=== PATIENT | male | born 1950 | race Caucasian/White ===

== ENCOUNTER 2016-05-17 00:47 | Inpatient (IN) | payer MEDICARE, MEDICAID ==
[2016-05-17] VITALS (30 sets, daily range): BP systolic 97–137; BP diastolic 54–78; PULSE 94–114; RESP 15–25
[~2016-05-17] VITALS: Ht 188 cm; Wt 71.8 kg
[2016-05-17] MEDS ORDERED: ACETAMINOPHEN 650 MG SUPP PR PRN (02:00)
[2016-05-17] MEDS ORDERED: ONDANSETRON 4 MG INJ IV PRN (02:00)
[2016-05-17] MEDS ORDERED: ACETAMINOPHEN 650MG/20.3ML CUP GTB PRN (02:00)
[2016-05-17] MEDS ORDERED: BISACODYL 10 MG SUPP PR PRN (02:00)
[2016-05-17 02:31] LABS: AADO2 Arterial 230.9 mmHg (7.0-24.0); Allen Test ACCEPTAB; Arterial Base Excess 0.6 mmol/L (-3.0-3); Arterial COHb 0.3 % (0.0-3.0); Arterial Fraction of Oxyhgb 98.3 % (93.0-99.0); Arterial HCO3 26.5 mmol/L (22.0-26.0); Arterial MetHb 0.4 % (0.0-1.5); MODE VENT - AC
[2016-05-17] MEDS ORDERED: DEXTROSE 50% 50 ML SYRINGE IV PRN ×2 (02:45)
[2016-05-17] MEDS ORDERED: GLUCOSE GEL 15 GRAM TUBE BUCCAL PRN (02:45)
[2016-05-17] MEDS ORDERED: GLUCOSE GEL 15 GRAM TUBE PO PRN ×2 (02:45)
[2016-05-17] MEDS ORDERED: GLUCAGON 1 MG INJ IM PRN (02:45)
[2016-05-17] MEDS ORDERED: IPRATROPIUM (NEB) 0.5 MG/2.5 ML AMP HHN SCH (05:00)
[2016-05-17 05:55] LABS: ADD SCAN DIFF NO
[2016-05-17] MEDS: IPRATROPIUM (HFA) 12.9 GM INHALER INH SCH ×6 (05:55→21:00)
[2016-05-17] MEDS: INSULIN ASPART [NOVOLOG] 3 ML PEN SC SCH ×3 (06:00→17:49)
[2016-05-17 06:06] LABS: BASOPHILS % 0.1 % (0.0-2.0); EOSINOPHILS # 0.3 10^3/ul (0.0-0.5); EOSINOPHILS % 4.7 % (0.0-7.0); HEMATOCRIT 26.6 % (42.0-52.0); LYMPHOCYTES # 0.7 10^3/ul (0.8-2.9); LYMPHOCYTES % 10.5 % (15.0-51.0); MEAN CORPUSCULAR HEMOGLOBIN 33.6 pg (29.0-33.0); MEAN CORPUSCULAR HGB CONC 30.1 g/dl (32.0-37.0); MEAN CORPUSCULAR VOLUME 111.8 fl (82.0-101.0); MEAN PLATELET VOLUME 10.6 fl (7.4-10.4); MONOCYTE # 0.8 10^3/ul (0.3-0.9); MONOCYTES % 12.1 % (0.0-11.0); NEUTROPHIL # 4.8 10^3/ul (1.6-7.5); NEUTROPHILS % 71.4 % (39.0-77.0); PLATELET COUNT 215 10^3/UL (140-415); RED BLOOD COUNT 2.38 10^6/ul (4.70-6.10); RED CELL DISTRIBUTION WIDTH 17.9 % (11.5-14.5); WHITE BLOOD COUNT 6.8 10^3/ul (4.8-10.8)
[2016-05-17 06:26] LABS: POTASSIUM 4.6 mmol/L (3.5-5.1)
[2016-05-17 06:29] LABS: CREATININE 1.17 mg/dl (0.61-1.24)
[2016-05-17 06:30] LABS: CALCIUM 8.8 mg/dl (8.4-10.2)
[2016-05-17] MEDS: DEXTROSE 5% 1,000 ML IV SCH ×2 (07:30→09:20)
[2016-05-17 07:59] LABS: ALBUMIN 2.9 g/dl (3.3-4.9)
[2016-05-17 08:02] LABS: BILIRUBIN,INDIRECT 0.1 mg/dl (0-1.1); BILIRUBIN,TOTAL 0.1 mg/dl (0.2-1.3); TOTAL PROTEIN 6.9 g/dl (6.1-8.1)
--- NOTE | 2016-05-17 08:29 | HP ---
DATE OF ADMISSION: 05/17/2016 CHIEF COMPLAINT: Status post Code Arrest. HISTORY OF PRESENT ILLNESS: This is a 65-year-old male with a past medical history of depression, h istory of intracranial hemorrhage, history of chronic hydrocephalus, history of bacterial endocardit is, history of mitral valve prolapse, history of dysphagia, status post PEG, a history of pneumonia and sepsis who initially presented to [facility] on 03/17/2016 after being found unrespon sive. The patient came from a halfway facility, was brought to the emergency room and was p laced on BiPAP. The patient was diagnosed with sepsis secondary to pneumonia. He was placed on IV fluids and IV antibiotics. The patient, however, suffered a complicated hospital course, requiring multiple transfers to the intensive care unit for hypercapnic respiratory failure. The patient also suffered a Code Arrest during the hospital stay due to a thoracic wall hematoma while on heparin fo r a lower extremity deep venous thrombosis, causing hemorrhagic shock. The patient had his PEA arre st on 04/27/2016 secondary to hypoxemic respiratory failure. The patient was eventually trached and pegged on 04/29/2016. The patient was eventually stabilized and transferred to [facility] for continued care. While at [facility] the patient has been clinically stable; however, yesterd ay the patient suffered a Code Blue cardiac arrest, was in asystole for 1 minute. The patient under went CPR, with spontaneous return of circulation. The etiology of the code was felt to be due to a mucus plug. The patient was placed back on the vent, was not given any medications, was not placed on any drips. The patient, however, was transferred from [facility] to [facility] intensive ca re unit for continued care and monitoring. Overnight the patient has been stable hemodynamically. There have been no episodes of hemoptysis, h ematemesis or hematochezia. Upon my evaluation of the patient at this time he is currently nonresponsive, retracts to deep painf ul stimuli, appears to be at his previous baseline. PAST MEDICAL HISTORY: History of chronic respiratory failure, status post tracheostomy, history of dysphagia, history of encephalopathy, history of chronic hydrocephalus, history of bacterial endocar ditis, history of mitral regurgitation, history of scoliosis. PAST SURGICAL HISTORY: Status post trach, status post PEG, status post IVC filter, status post VATS . SOCIAL HISTORY: Resides at a skilled nurse facility. FAMILY HISTORY: Noncontributory. ALLERGIES: NO KNOWN DRUG ALLERGIES. MEDICATIONS: The patient's medications have been reviewed and reconciled. REVIEW OF SYSTEMS: Unable to do an adequate review of systems as the patient is obtunded. Pertinen t positives obtained by reviewing the medical records, speaking to hospital staff, as stated in the HPI, otherwise negative. PHYSICAL EXAMINATION: VITAL SIGNS: Blood pressure 120/69, respirations 16, pulse 101, temperature 98.7. HEENT: Head is normocephalic. NECK: Shows a trach. HEART: Regular rate. LUNGS: Showed diminished breath sounds at the base. ABDOMEN: Soft, nontender to palpation. Positive PEG. EXTREMITIES: Negative for clubbing or cyanosis. Positive edema, left greater than right. NEUROLOGIC: Limited exam due to lack of patient cooperation. MUSCULOSKELETAL: Have no joint effusion. DERMATOLOGIC: No rashes. LABORATORY DATA: Shows sodium 148, potassium 4.6, chloride 109, bicarbonate 34, BUN 44, creatinine 1.17. White count 6.8, hemoglobin 8.0, hematocrit 26.6, platelet count is 215. ABG was reviewed. ASSESSMENT AND PLAN: This is a 65-year-old male who presents with: 1. Status post Code Arrest. Etiology is felt to be secondary to respiratory due to mucus plug. Th e patient underwent CPR for approximately 45 minutes and was noted to be asystole for 1 minute. The patient had spontaneous return of circulation. At this point the patient is stable. Will continue the current treatment plan, continue vent support. Will place a cardiology consult and pulmonary c onsult for evaluation. 2. Ventilator-dependent respiratory failure. Vent settings have been reviewed. ABG has been revie thu. Continue to monitor. Follow up with pulmonary. 3. Coronary artery disease. Continue the current medical management. 4. Dysphagia, status post PEG. The patient will be resumed on tube feedings. Will place a dietary c onsult for evaluation. 5. Anemia, likely of chronic disease. Continue to monitor H and H levels. Will check an iron pane l. 6. Acute encephalopathy. Etiology is toxic metabolic and anoxic. Will continue to monitor. 7. Seizure disorder. Continue Keppra. 8. Arrhythmia, history of SVT. Continue metoprolol. 9. History of lower extremity deep venous thrombosis, status post inferior vena cava filter. 10. Hypertension. Blood pressure controlled. Continue the current blood pressure regimen. 11. Previous history of hemorrhagic cerebrovascular accident. Continue medical management. 12. Urinary retention and benign prostatic hypertrophy. Continue Proscar. 13. History of congestive heart failure. Continue the current medical management and follow up wit h cardiology. 14. Status post sepsis secondary to healthcare-associated pneumonia. 15. History of VATS. 16. History of endocarditis. 17. Hyponatremia. The patient has a free water deficit of approximately 2.5 liters. Will start th e patient on D5W at 50 mL an hour. Dictated By: DOLLY OROSCO/JAYNA Conf#: [id number] DID#: [id number]
[2016-05-17] MEDS: SENNA TAB PO SCH (09:08)
[2016-05-17] MEDS: FAMOTIDINE 20 MG INJ IV SCH (09:08)
[2016-05-17] MEDS: LACTULOSE 30ML CUP PO SCH (09:08)
[2016-05-17] MEDS: LIDOCAINE 2% VISC 15 ML CUP PO SCH ×3 (09:08→20:36)
[2016-05-17] MEDS: LEVETIRACETAM IV 750 MG in DEXTROSE 5% 100 ML IVPB SCH ×2 (09:08→20:27)
[2016-05-17] MEDS: FINASTERIDE 5 MG TAB GTB SCH (09:08)
[2016-05-17] MEDS: ACETAZOLAMIDE 500 MG INJ IV SCH (09:09)
[2016-05-17] MEDS: POLYETHYLENE GLYCOL 17 GM PACKET PO SCH (09:09)
[2016-05-17] MEDS: METOPROLOL 25 MG TAB GTB SCH ×2 (09:09→20:26)
[2016-05-17] MEDS: LIDOCAINE 5% PATCH TD SCH (09:09)
[2016-05-17] MEDS: HEPARIN 5,000 UNIT/0.5 ML SYG SC SCH ×2 (09:16→20:30)
--- NOTE | 2016-05-17 09:44 | CONS ---
Date/Time of Note Date/Time of Note DATE: 05/17/16 TIME: 09:41 Assessment/Plan Assessment/Plan Additional Assessment/Plan 1. Status post Code Arrest. 2. Ventilator-dependent respiratory failure. 3. Coronary artery disease. 6. Acute encephalopathy. 7. Seizure disorder. 8. Arrhythmia, history of SVT. 9. History of lower extremity deep venous thrombosis, status post inferior vena cava filter. 10. Hypertension. 11. Previous history of hemorrhagic cerebrovascular accident. 13. History of congestive heart failure. 14. Status post sepsis secondary to healthcare-associated pneumonia. 15. History of VATS. 16. History of endocarditis. -Continue curretn management -no malignant arrythmias -on metoprololo withno malignant arrtyhmias -on antibiotics -monitor for arrythmias Consultation Date/Type/Reason Admit Date/Time May 17, 2016 at 01:40 Hx of Present Illness This is a 65-year-old male with a past medical history of depression, history of intracranial hemorrhage, history of chronic hydrocephalus, history of bacterial endocarditis, history of mitral valve prolapse, history of dysphagia, status post PEG, a history of pneumonia and sepsis who initially presented to [facility] on 03/17/2016 after being found unresponsive. The patient came from a care home facility, was brought to the emergency room and was placed on BiPAP. The patient was diagnosed with sepsis secondary to pneumonia. He was placed on IV fluids and IV antibiotics. The patient, however , suffered a complicated hospital course, requiring multiple transfers to the intensive care unit for hypercapnic respiratory failure. The patient also suffered a Code Arrest during the hospital stay due to a thoracic wall hematoma while on heparin for a lower extremity deep venous thrombosis, causing hemorrhagic shock. The patient had his PEA arrest on 04/27/2016 secondary to hypoxemic respiratory failure. The patient was eventually trached and pegged on 04/29/2016. The patient was eventually stabilized and transferred to [facility] for continued care. While at [place] the patient has been clinically stable; however, yesterday the patient suffered a Code Blue cardiac arrest, was in asystole for 1 minute. The patient underwent CPR, with spontaneous return of circulation. The etiology of the code was felt to be due to a mucus plug. The patient was placed back on the vent, was not given any medications, was not placed on any drips. The patient, however, was transferred from [facility] intensive care unit for continued care and monitoring. Currently he is stable in the ICU with no malignant arrythmias Social History Smoking Status: Unknown if ever smoked Exam/Review of Systems Vital Signs Vitals Vital Signs Date Time Temp Pulse Resp B/P Pulse Ox O2 Delivery O2 Flow Rate FiO2 05/17/16 08:00 98 05/17/16 07:00 98.8 17 118/68 100 Mechanical Ventilator 05/17/16 05:48 50 Intake and Output 05/16/16 05/16/16 05/17/16 15:00 23:00 07:00 Output Total 1010 ml Balance -1010 ml Results Result Diagram: 05/17/16 0450 05/17/16 0450 Results 24 hrs Laboratory Tests Test 05/17/16 02:15 05/17/16 04:50 05/17/16 05:59 Blood Gas Specimen Source Blood arterial Arterial Blood Date Drawn 05/17/2016 2:15:18 AM Arterial Blood pH (Temp corrected) 7.347 L Arterial Blood pCO2 (Temp correct) 49.5 H Arterial Blood pO2 (Temp corrected) 215.0 H Arterial Blood HCO3 26.5 H Arterial Blood Base Excess 0.6 Arterial Blood Oxygen Saturation 99.0 H Dane Test ACCEPTAB Arterial Blood Gas Puncture Site Right Radial Arterial Blood Carboxyhemoglobin 0.3 Arterial Blood Methemoglobin 0.4 Blood Gas A-a O2 Differential 230.9 H Oxyhemoglobin Percent 98.3 Total Hemoglobin 9.0 L Blood Gas Temperature 37.0 Blood Gas Respiration Rate 10.0 Blood Gas Actual Respiration Rate 16 Blood Gas Modality VENT - AC FiO2 70.0 Blood Gas Tidal Volume 400.0 Blood Gas Low PEEP Setting 5.0 Blood Gas Notified Whom MA Blood Gas Notified Time 05/17/2016 2:31:06 AM White Blood Count 6.8 # Red Blood Count 2.38 L Hemoglobin 8.0 L Hematocrit 26.6 L Mean Corpuscular Volume 111.8 H Mean Corpuscular Hemoglobin 33.6 H Mean Corpuscular Hemoglobin Concent 30.1 L Red Cell Distribution Width 17.9 H Platelet Count 215 Mean Platelet Volume 10.6 H Neutrophils % 71.4 Lymphocytes % 10.5 L Monocytes % 12.1 H Eosinophils % 4.7 Basophils % 0.1 Nucleated Red Blood Cells % 0.0 Neutrophils # 4.8 Lymphocytes # 0.7 L Monocytes # 0.8 Eosinophils # 0.3 Basophils # 0.0 Nucleated Red Blood Cells # 0.0 Sodium Level 148 H Potassium Level 4.6 Chloride Level 109 Carbon Dioxide Level 34 H Anion Gap 10 Blood Urea Nitrogen 44 H Creatinine 1.17 Glucose Level 89 Calcium Level 8.8 Total Bilirubin 0.1 L Direct Bilirubin 0.00 Indirect Bilirubin 0.1 Aspartate Amino Transf (AST/SGOT) 50 H Alanine Aminotransferase (ALT/SGPT) 55 Alkaline Phosphatase 168 H Total Protein 6.9 Albumin 2.9 L Bedside Glucose 91 Medications Medications Current Medications Acetaminophen (Tylenol Liquid) 650 mg Q6H PRN GTB PAIN AND OR ELEVATED TEMP; Start 05/17/16 at 02:00 Acetaminophen (Tylenol Supp) 650 mg Q6H PRN MO IF GTB ROUTE NOT EFFECTIVE; Start 05/17/16 at 02:00 Acetazolamide (Diamox) 500 mg DAILY IV Last administered on 05/17/16 09:09; Admin Dose 500 MG; Start 05/17/16 at 09:00 Bisacodyl (Dulcolax Supp) 10 mg DAILY PRN [place] CONSTIPATION; Start 05/17/16 at 02 :00 Insulin Aspart (Novolog Insulin Pen) NOVOLOG *MILD* ALGORI... Q6 SC ; Start at 06:00 Digoxin (Digoxin) 0.125 mg DAILY@13 GTB ; Start 05/17/16 at 13:00 Famotidine (Pepcid Iv) 20 mg DAILY IV Last administered on 05/17/16 09:08; Admin Dose 20 MG; Start 05/17/16 at 09:00 Finasteride (Proscar) 5 mg DAILY GTB Last administered on 05/17/16 09:08; Admin Dose 5 MG; Start 05/17/16 at 09:00 Heparin Sodium (Porcine) (Heparin (5000 Units/0.5 ml)) 5,000 unit BID SC Last administered on 05/17/16 09:16; Admin Dose 5,000 UNIT; Start 05/17/16 at 09:00 Acetaminophen/ Hydrocodone Bitart (Lortab Liq) 10 ml Q6H PRN PO PAIN; Start at 02:00 Lactulose 20 gm 20 gm DAILY PO Last administered on 05/17/16 09:08; Admin Dose 20 GM; Start 05/17/16 at 09:00 Levetiracetam/ Dextrose (Keppra Iv/D5W) 107.5 ml @ 430 mls/hr Q12 IVPB Last administered on 05/17/16 09:08; Admin Dose 430 MLS/HR; Start 05/17/16 at 09:00 Lidocaine (Lidoderm) 1 patch DAILY TD Last administered on 05/17/16 09:09; Admin Dose 1 PATCH; Start 05/17/16 at 09:00 Lidocaine (Xylocaine (Viscous)) 15 ml TID PO Last administered on 05/17/16 09: 08; Admin Dose 15 ML; Start 05/17/16 at 09:00 Metoprolol Tartrate (Lopressor) 25 mg BID GTB Last administered on 05/17/16 09 :09; Admin Dose 25 MG; Start 05/17/16 at 09:00 Ondansetron HCl (Zofran Inj) 4 mg Q8 PRN IV NAUSEA AND/OR VOMITING; Start 05/17 at 02:00 Polyethylene Glycol (Miralax) 17 gm DAILY PO Last administered on 05/17/16 09: 09; Admin Dose 17 GM; Start 05/17/16 at 09:00 IV Flush (NS 10 ml) 10 ml Q8 IV Last administered on 05/17/16 06:00; Admin Dose 10 ML; Start 05/17/16 at 06:00 Senna (Senokot) 2 tab DAILY PO Last administered on 05/17/16 09:08; Admin Dose 2 TAB; Start 05/17/16 at 09:00 Simethicone (Mylicon) 80 mg Q6H PRN PO DISTENSION/GAS/BLOATING; Start 05/17/16 at 02:00 Miscellaneous Information 1 ea NOTE XX ; Start 05/17/16 at 02:45 Glucose (Glutose) 15 gm Q15M PRN PO DECREASED GLUCOSE; Start 05/17/16 at 02:45 Glucose (Glutose) 22.5 gm Q15M PRN PO DECREASED GLUCOSE; Start 05/17/16 at 02: 45 Dextrose (D50w Syringe) 25 ml Q15M PRN IV DECREASED GLUCOSE; Start 05/17/16 at 02:45 Dextrose (D50w Syringe) 50 ml Q15M PRN IV DECREASED GLUCOSE; Start 05/17/16 at 02:45 Glucagon (Glucagen) 1 mg Q15M PRN IM DECREASED GLUCOSE; Start 05/17/16 at 02:45 Glucose 15 gm 15 gm Q15M PRN BUCCAL DECREASED GLUCOSE; Start 05/17/16 at 02:45 Dextrose (D5W) 1,000 ml @ 50 mls/hr Q20H IV Last administered on 05/17/16t 09: 20; Admin Dose 50 MLS/HR; Start 05/17/16 at 07:30 BETTY HARRIS MD May 17, 2016 09:44
--- NOTE | 2016-05-17 09:46 | RADRPT ---
PROCEDURE: XR Chest. CLINICAL INDICATION: CHF. TECHNIQUE: Single frontal view of the chest was obtained COMPARISON: Chest x-ray 05/14/2016 07:21 a.m. FINDINGS: The soft tissues are normal. There are osteophytes in the thoracic spine with a dextroscoliosis in the mid thoracic spine. The left ventricle is enlarged. The cardiomediastinal silhouette and hilar structures are normal. The pulmonary vasculature is normal. There are vascular calcifications in th e aortic arch. There are asymmetric pulmonary infiltrates greater in the right hilar area and right lower lobe. There are additional consolidative infiltrates in the left lower lobe which are stable. A tracheostomy tube is positioned to 04/26. There are bilateral pleural effusions. IMPRESSION: 1. There has been slight interval worsening of the pulmonary infiltrates in the right lung when comp ared to the prior study. Otherwise, stable chest x-ray. 2. Stable positioning of the tracheostomy tube. RPTAT:AAJJ Physician Sharita Date Time Electronically viewed and signed by Physician Sharita on 05/17/2016 09:46 SHERIF/
[2016-05-17] MEDS ORDERED: VANCOMYCIN IV PER PHARMACY XX SCH (12:00)
--- NOTE | 2016-05-17 12:04 | CONS ---
Date/Time of Note Date/Time of Note DATE: 05/17/16 TIME: 11:58 Assessment/Plan Assessment/Plan Additional Assessment/Plan Chest x-ray was reviewed from today which is showing extensive infiltrate involving the right lower lobe. Current ventilator setting; AC of 10, tidal volume 400, PEEP of 5, 30% FiO2. Assessment recommendations; 1. Patient admitted for cardiac arrest status post successful CPR. 2. Right lower lobe pneumonia possibly aspiration. 3. Multiple other comorbidities as outlined previously which all appear fairly stable. Continue current treatment. Start patient on antibiotic coverage I would recommend adding vancomycin and cefepime. Ecchymosis is poor. Consultation Date/Type/Reason Admit Date/Time May 17, 2016 at 01:40 Date of Consultation: May 17, 2016 Type of Consultation: Pulmonary/critical care Reason for Consultation Pulmonary consultation obtained for ventilator management, patient status post cardiac arrest status post CPR. History presenting; patient is a 65-year-old white male who was transferred to ICU from [facility] after sustaining cardiac arrest yesterday. Patient went into PEA was successfully revived and then transferred to ICU. The patient does have a history of severe CVA and is unable to give any history whatsoever by himself history was obtained from medical records. Currently the patient is on ventilator via tracheostomy unresponsive. And however has remained hemodynamically stable. Past medical history; 1. History of chronic respiratory failure, ventilator dependent. 2. Tracheostomy 3. G-tube placement 4. Mitral valve prolapse 5. History of prior CPR is billed next 6. History of multiple pneumonia/sepsis next 7. Depression. 8. History of hydrocephalus. 9. History of intracranial bleed. 10. History of endocarditis. 11. History of inferior vena cava filter placement. 12. History of VATs. 13. History of severe anoxic brain injury. Medications; were reviewed. Allergies; are to ketorolac. Social history, family history is unavailable. Occupational history; not available. Review of systems; unable to be obtained. General exam; elderly male, on ventilator via tracheostomy unresponsive, currently in no distress. Social History Smoking Status: Unknown if ever smoked Exam/Review of Systems Vital Signs Vitals Vital Signs Date Time Temp Pulse Resp B/P Pulse Ox O2 Delivery O2 Flow Rate FiO2 05/17/16 11:00 97 18 105/58 99 05/17/16 10:00 Mechanical Ventilator 05/17/16 09:10 50 05/17/16 07:00 98.8 Intake and Output 05/16/16 05/16/16 05/17/16 15:00 23:00 07:00 Output Total 1060 ml Balance -1060 ml Exam HEENT examination; supple neck, no JVD. No lymphadenopathy. Midline trachea. No thyromegaly. Patient has only one remaining tooth. Tracheostomy in place with clean insertion site. Chest examination; diminished breath sounds right lung. Left lung is fairly clear. S1-S2 audible, there is a cyst pansystolic murmur best heard in the mitral area grade 2/6. Regular rhythm. Abdomen examination; soft, no organomegaly. G-tube in place. Bowel sounds audible. Extremity examination; no peripheral edema. RESOURCE ANALYST examination; patient only grimaces on deep sternal rubbing. Results Result Diagram: 05/17/16 0450 05/17/16 0450 Results 24 hrs Laboratory Tests Test 05/17/16 02:15 05/17/16 04:50 05/17/16 05:59 Blood Gas Specimen Source Blood arterial Arterial Blood Date Drawn 05/17/2016 2:15:18 AM Arterial Blood pH (Temp corrected) 7.347 L Arterial Blood pCO2 (Temp correct) 49.5 H Arterial Blood pO2 (Temp corrected) 215.0 H Arterial Blood HCO3 26.5 H Arterial Blood Base Excess 0.6 Arterial Blood Oxygen Saturation 99.0 H Dane Test ACCEPTAB Arterial Blood Gas Puncture Site Right Radial Arterial Blood Carboxyhemoglobin 0.3 Arterial Blood Methemoglobin 0.4 Blood Gas A-a O2 Differential 230.9 H Oxyhemoglobin Percent 98.3 Total Hemoglobin 9.0 L Blood Gas Temperature 37.0 Blood Gas Respiration Rate 10.0 Blood Gas Actual Respiration Rate 16 Blood Gas Modality VENT - AC FiO2 70.0 Blood Gas Tidal Volume 400.0 Blood Gas Low PEEP Setting 5.0 Blood Gas Notified Whom MA Blood Gas Notified Time 05/17/2016 2:31:06 AM White Blood Count 6.8 # Red Blood Count 2.38 L Hemoglobin 8.0 L Hematocrit 26.6 L Mean Corpuscular Volume 111.8 H Mean Corpuscular Hemoglobin 33.6 H Mean Corpuscular Hemoglobin Concent 30.1 L Red Cell Distribution Width 17.9 H Platelet Count 215 Mean Platelet Volume 10.6 H Neutrophils % 71.4 Lymphocytes % 10.5 L Monocytes % 12.1 H Eosinophils % 4.7 Basophils % 0.1 Nucleated Red Blood Cells % 0.0 Neutrophils # 4.8 Lymphocytes # 0.7 L Monocytes # 0.8 Eosinophils # 0.3 Basophils # 0.0 Nucleated Red Blood Cells # 0.0 Sodium Level 148 H Potassium Level 4.6 Chloride Level 109 Carbon Dioxide Level 34 H Anion Gap 10 Blood Urea Nitrogen 44 H Creatinine 1.17 Glucose Level 89 Calcium Level 8.8 Total Bilirubin 0.1 L Direct Bilirubin 0.00 Indirect Bilirubin 0.1 Aspartate Amino Transf (AST/SGOT) 50 H Alanine Aminotransferase (ALT/SGPT) 55 Alkaline Phosphatase 168 H Total Protein 6.9 Albumin 2.9 L Bedside Glucose 91 Medications Medications Current Medications Acetaminophen (Tylenol Liquid) 650 mg Q6H PRN GTB PAIN AND OR ELEVATED TEMP; Start 05/17/16 at 02:00 Acetaminophen (Tylenol Supp) 650 mg Q6H PRN [place] IF GTB ROUTE NOT EFFECTIVE; Start 05/17/16 at 02:00 Acetazolamide (Diamox) 500 mg DAILY IV Last administered on 05/17/16 09:09; Admin Dose 500 MG; Start 05/17/16 at 09:00 Bisacodyl (Dulcolax Supp) 10 mg DAILY PRN [place] CONSTIPATION; Start 05/17/16 at 02 :00 Insulin Aspart (Novolog Insulin Pen) NOVOLOG *MILD* ALGORI... Q6 SC ; Start at 06:00 Digoxin (Digoxin) 0.125 mg DAILY@13 GTB ; Start 05/17/16 at 13:00 Famotidine (Pepcid Iv) 20 mg DAILY IV Last administered on 05/17/16 09:08; Admin Dose 20 MG; Start 05/17/16 at 09:00 Finasteride (Proscar) 5 mg DAILY GTB Last administered on 05/17/16 09:08; Admin Dose 5 MG; Start 05/17/16 at 09:00 Heparin Sodium (Porcine) (Heparin (5000 Units/0.5 ml)) 5,000 unit BID SC Last administered on 05/17/16 09:16; Admin Dose 5,000 UNIT; Start 05/17/16 at 09:00 Acetaminophen/ Hydrocodone Bitart (Lortab Liq) 10 ml Q6H PRN PO PAIN; Start at 02:00 Lactulose 20 gm 20 gm DAILY PO Last administered on 05/17/16 09:08; Admin Dose 20 GM; Start 05/17/16 at 09:00 Levetiracetam/ Dextrose (Keppra Iv/D5W) 107.5 ml @ 430 mls/hr Q12 IVPB Last administered on 05/17/16 09:08; Admin Dose 430 MLS/HR; Start 05/17/16 at 09:00 Lidocaine (Lidoderm) 1 patch DAILY TD Last administered on 05/17/16 09:09; Admin Dose 1 PATCH; Start 05/17/16 at 09:00 Lidocaine (Xylocaine (Viscous)) 15 ml TID PO Last administered on 05/17/16 09: 08; Admin Dose 15 ML; Start 05/17/16 at 09:00 Metoprolol Tartrate (Lopressor) 25 mg BID GTB Last administered on 05/17/16 09 :09; Admin Dose 25 MG; Start 05/17/16 at 09:00 Ondansetron HCl (Zofran Inj) 4 mg Q8 PRN IV NAUSEA AND/OR VOMITING; Start 05/17 at 02:00 Polyethylene Glycol (Miralax) 17 gm DAILY PO Last administered on 05/17/16 09: 09; Admin Dose 17 GM; Start 05/17/16 at 09:00 IV Flush (NS 10 ml) 10 ml Q8 IV Last administered on 05/17/16 06:00; Admin Dose 10 ML; Start 05/17/16 at 06:00 Senna (Senokot) 2 tab DAILY PO Last administered on 05/17/16 09:08; Admin Dose 2 TAB; Start 05/17/16 at 09:00 Simethicone (Mylicon) 80 mg Q6H PRN PO DISTENSION/GAS/BLOATING; Start 05/17/16 at 02:00 Miscellaneous Information 1 ea NOTE XX ; Start 05/17/16 at 02:45 Glucose (Glutose) 15 gm Q15M PRN PO DECREASED GLUCOSE; Start 05/17/16 at 02:45 Glucose (Glutose) 22.5 gm Q15M PRN PO DECREASED GLUCOSE; Start 05/17/16 at 02: 45 Dextrose (D50w Syringe) 25 ml Q15M PRN IV DECREASED GLUCOSE; Start 05/17/16 at 02:45 Dextrose (D50w Syringe) 50 ml Q15M PRN IV DECREASED GLUCOSE; Start 05/17/16 at 02:45 Glucagon (Glucagen) 1 mg Q15M PRN IM DECREASED GLUCOSE; Start 05/17/16 at 02:45 Glucose 15 gm 15 gm Q15M PRN BUCCAL DECREASED GLUCOSE; Start 05/17/16 at 02:45 Dextrose (D5W) 1,000 ml @ 50 mls/hr Q20H IV Last administered on 05/17/16 09: 20; Admin Dose 50 MLS/HR; Start 05/17/16 at 07:30 MARIA C OWEN May 17, 2016 12:04
[2016-05-17] MEDS: DIGOXIN 0.125 MG TAB GTB SCH (12:45)
[2016-05-17 14:09] LABS: ADD UMIC YES; URINE BILIRUBIN (Dip) NEGATIVE (NEGATIVE); URINE BLOOD (Dip) TRACE (NEGATIVE); URINE COLOR LT. YELLOW (YELLOW); URINE GLUCOSE (Dip) NEGATIVE (NEGATIVE); URINE KETONES (Dip) NEGATIVE (NEGATIVE); URINE LEUKOCYTE ESTERASE (Dip) TRACE (NEGATIVE); URINE NITRITE (Dip) NEGATIVE (NEGATIVE); URINE TOTAL PROTEIN (Dip) NEGATIVE (NEGATIVE); URINE UROBILINOGEN (Dip) 0.2 E.U./dL (0.1-1.0)
[2016-05-17 14:30] LABS: BACTERIA,URINE FEW; PROTEIN URINE 17.1 mg/dl (0.0-9.9)
[2016-05-17] MEDS ORDERED: VANCOMYCIN 1.5 GM in SOD CHLORIDE 0.9% 250 ML IVPB SCH (14:30)
--- NOTE | 2016-05-17 15:25 | RADRPT ---
PROCEDURE: CT Brain without contrast. CLINICAL INDICATION: r/o stroke TECHNIQUE: A CT of the brain was performed utilizing axial imaging from the skull base through the vertex without IV contrast. Multiplanar reformatted images were made. Images were reviewed on a [employer] workstation. The CTDIvol is and 42 mGy and the DLP is 720 mGycm. COMPARISON: None FINDINGS: There is severe diffuse cerebral volume loss with sulcal, ventricular and cisternal dilatation. No discrete extra-axial fluid collection or masses present. Ventricles are in the midline. Noted is a n old posterior right parietal lobe infarct with cystic encephalomalacia. There is mild white matte r disease compatible with chronic small vessel ischemia. No intracranial hemorrhage is seen. There is normal aeration of the visualized paranasal sinuses. IMPRESSION: Severe atrophy. Old posterior right parietal lobe infarct with cystic encephalomalacia. White stormy er disease compatible with chronic small vessel ischemia. No intracranial hemorrhage or mass. .Juve Herrera MD, MD Date Time Electronically viewed and signed by .Juve Herrera MD, on 05/17/2016 15:24 .A/
[2016-05-17] MEDS: CEFEPIME 1GM/50 ML (PMX) 50 ML IVPB SCH (20:26)
[2016-05-18] VITALS (37 sets, daily range): BP systolic 103–136; BP diastolic 61–81; PULSE 92–162; RESP 16–27
[2016-05-18] MEDS: IPRATROPIUM (HFA) 12.9 GM INHALER INH SCH ×6 (00:23→20:03)
[2016-05-18] MEDS: ACETAMINOPHEN 325/HYDROC 7.5 15 ML CUP PO PRN (01:27)
[2016-05-18] MEDS: VANCOMYCIN 750 MG in SOD CHLORIDE 0.9% 150 ML IVPB SCH ×2 (04:06→16:57)
[2016-05-18 05:22] LABS: ADD SCAN DIFF NO
[2016-05-18 05:23] LABS: BASOPHILS % 0.2 % (0.0-2.0); EOSINOPHILS # 0.3 10^3/ul (0.0-0.5); EOSINOPHILS % 6.4 % (0.0-7.0); HEMATOCRIT 25.2 % (42.0-52.0); LYMPHOCYTES # 0.8 10^3/ul (0.8-2.9); LYMPHOCYTES % 19.1 % (15.0-51.0); MEAN CORPUSCULAR HEMOGLOBIN 34.3 pg (29.0-33.0); MEAN CORPUSCULAR HGB CONC 31.7 g/dl (32.0-37.0); MEAN CORPUSCULAR VOLUME 108.2 fl (82.0-101.0); MEAN PLATELET VOLUME 10.6 fl (7.4-10.4); MONOCYTE # 0.6 10^3/ul (0.3-0.9); NEUTROPHIL # 2.6 10^3/ul (1.6-7.5); NEUTROPHILS % 59.9 % (39.0-77.0); PLATELET COUNT 184 10^3/UL (140-415); RED BLOOD COUNT 2.33 10^6/ul (4.70-6.10); RED CELL DISTRIBUTION WIDTH 17.6 % (11.5-14.5); WHITE BLOOD COUNT 4.4 10^3/ul (4.8-10.8)
[2016-05-18 05:46] LABS: POTASSIUM 3.4 mmol/L (3.5-5.1)
[2016-05-18 05:49] LABS: CREATININE 1.22 mg/dl (0.61-1.24)
[2016-05-18 05:50] LABS: CALCIUM 8.8 mg/dl (8.4-10.2); MAGNESIUM 2.5 mg/dl (1.7-2.5); PHOSPHORUS 4.1 mg/dl (2.5-4.9)
[2016-05-18] MEDS: INSULIN ASPART [NOVOLOG] 3 ML PEN SC SCH ×4 (06:00→17:22)
[2016-05-18] MEDS: DEXTROSE 5% 1,000 ML IV SCH ×2 (06:20→16:52)
[2016-05-18] MEDS ORDERED: POTASSIUM CHLORIDE 20 MEQ POWDER FOR ORAL SOLN GTB ONE (08:00)
--- NOTE | 2016-05-18 08:26 | PN ---
DATE: 05/18/2016 SUBJECTIVE: The patient yesterday suffered a code arrest and was transferred to intensive care unit . Overnight, the patient has been stable, currently is not on any pressor support. Hemodynamically , he has been stable. No other acute events noted. No hemoptysis, hematemesis, or hematochezia. T he patient has been noted to be intermittently tachycardic. OBJECTIVE: VITAL SIGNS: Blood pressure 126/76, respiration 18, pulse 109, temperature 97.9. HEENT: Head is normocephalic. NECK: Supple. HEART: Tachycardic. LUNGS: Show diminished breath sounds at base. ABDOMEN: Soft, nontender to palpation. No rebound or guarding. EXTREMITIES: Negative for clubbing, cyanosis. Positive edema, left greater than right. DERMATOLOGIC: Noted excoriations. NEUROLOGIC: Limited exam due to lack of patient cooperation and obtunded state. MUSCULOSKELETAL: No effusions noted. LABORATORY DATA: Shows sodium 144, potassium 4, chloride 109, BUN 41, creatinine 1.22. White count 12.4, hemoglobin 8.0, hematocrit 25.2, platelet count is 194. The patient's urinalysis was reviewe d. IMAGING STUDIES: CT scan of the brain shows evidence of old infarct, no acute intracranial patholog y. Chest x-ray shows slightly worsening pulmonary infiltrates in right lung. ASSESSMENT AND PLAN: 1. Status post code arrest. Etiology is likely respiratory due to mucus plug. The patient is curr ently hemodynamically stable. We will continue to monitor. 2. Ventilator dependent respiratory failure. Vent settings have been reviewed. ABG has been revie wed. Continue current vent settings. 3. Aspiration pneumonia. The patient is currently on antibiotic therapy. We will continue. Cultu res have been sent. We will follow up placing infectious disease consult for evaluation. 4. Coronary artery disease. Continue current medical management. 5. Tachyarrhythmia. The patient's heart rate has been ranging between 110 to 120. Continue metopr olol and digoxin. Follow up with cardiology for recommendations. 6. History of coronary artery disease. Continue medical management. 7. Dysphagia status post PEG. The patient will be started on tube feeding. 8. Anemia of chronic disease. Continue to monitor H and H levels. No evidence of bleeding. 9. Acute encephalopathy, etiology toxic metabolic. Continue to monitor. 10. Seizure disorder. Continue Keppra. 11. History of lower extremity deep venous thrombosis status post inferior vena cava filter. 12. Hypertension. Continue current blood pressure regimen. 13. Previous history of hemorrhagic cerebrovascular accident. The patient is status post CT scan. No acute findings. 14. History of congestive heart failure. Continue current medical management. 15. Status post sepsis secondary to healthcare-associated pneumonia. 16. History of ____. 17. History of endocarditis. Dictated By: DOLLY OROSCO/JAYNA Conf#: [id number] DID#: [id number]
[2016-05-18] MEDS: LIDOCAINE 2% VISC 15 ML CUP PO SCH ×3 (09:33→21:00)
[2016-05-18] MEDS: LACTULOSE 30ML CUP PO SCH (09:33)
[2016-05-18] MEDS: LIDOCAINE 5% PATCH TD SCH (09:34)
[2016-05-18] MEDS: LEVETIRACETAM IV 750 MG in DEXTROSE 5% 100 ML IVPB SCH ×2 (09:35→21:42)
[2016-05-18] MEDS: POLYETHYLENE GLYCOL 17 GM PACKET PO SCH (09:35)
[2016-05-18] MEDS: SENNA TAB PO SCH (09:35)
[2016-05-18] MEDS: CEFEPIME 1GM/50 ML (PMX) 50 ML IVPB SCH ×2 (09:35→21:42)
[2016-05-18] MEDS: FINASTERIDE 5 MG TAB GTB SCH (09:35)
[2016-05-18] MEDS: METOPROLOL 25 MG TAB GTB SCH ×2 (09:35→21:41)
[2016-05-18] MEDS: HEPARIN 5,000 UNIT/0.5 ML SYG SC SCH ×2 (09:37→21:44)
[2016-05-18] MEDS: FAMOTIDINE 20 MG INJ IV SCH (09:43)
--- NOTE | 2016-05-18 09:43 | CONS ---
Date/Time of Note Date/Time of Note DATE: 05/18/16 TIME: 09:39 Assessment/Plan Assessment/Plan Additional Assessment/Plan Ventilator settings; AC of 10, tidal volume 400, PEEP of 5, 30% FiO2. Assessment recommendations; 1. Patient admitted after cardiac arrest, underwent CPR with revival of vital signs as well as with revision of mental status. 2. Chronic respiratory failure, ventilator dependent. 3. Right lower lobe pneumonia. 4. Multiple other comorbidities including mitral valve prolapse, tracheostomy, G-tube placement, history of prior intracranial bleed, history of inferior vena cava filter placement, history of prior VATS procedure. Continue current treatment. Obtain a follow-up chest x-ray tomorrow. Consultation Date/Type/Reason Admit Date/Time May 17, 2016 at 01:40 Initial Consult Date 05/17/16 Type of Consultation: Pulmonary/critical care 24 HR Interval Summary Free Text/Dictation Patient condition remains stable. Awake and alert. Responds to questions appropriately by head nodding, unable to move any extremities. This is on account of extensive CVA. General exam; elderly male, awake, alert. On ventilator via tracheostomy currently in no distress. Exam/Review of Systems Vital Signs Vitals Vital Signs Date Time Temp Pulse Resp B/P Pulse Ox O2 Delivery O2 Flow Rate FiO2 05/18/16 09:00 124 22 127/79 97 Mechanical Ventilator 05/18/16 08:00 99.2 05/18/16 04:55 30 Intake and Output 05/17/16 05/17/16 05/18/16 15:00 23:00 07:00 Intake Total 763.333 ml 299.999 ml Output Total 275 ml 280 ml 365 ml Balance 488.333 ml 19.999 ml -365 ml Exam H EENT examination; supple neck, no JVD. No lymphadenopathy. Midline trachea. No thyromegaly. The colostomy in place with clean insertion site. Pupils are small bilaterally. Next Chest examination; diminished but clear breath sounds bilaterally in upper lobes. Diminished breath sounds right lower lobe. S1-S2 audible, no murmurs. Regular rhythm. Abdomen examination; soft, no organomegaly. G-tube in place. Bowel sounds audible. Extremity exam is; no peripheral edema. INFORMATION SERVICES CONSULTANT examination of Eriberto patient awake, alert. Appropriately responds by head nodding. Results Result Diagram: 05/18/16 0450 05/18/16 0450 Results 24 hrs Laboratory Tests Test 05/17/16 11:30 05/17/16 11:49 05/17/16 16:56 05/17/16 17:52 Urine Color LT. YELLOW Urine Clarity CLEAR Urine pH 8.0 Urine Specific [place] 1.010 Urine Ketones NEGATIVE Urine Nitrite NEGATIVE Urine Bilirubin NEGATIVE Urine Urobilinogen 0.2 E.U./dL Urine Leukocyte Esterase TRACE H Urine Microscopic RBC 2-5 Urine Microscopic WBC 0-2 Urine Bacteria FEW Urine Hemoglobin TRACE Urine Random Creatinine 22.97 Urine Random Sodium 73 Urine Glucose NEGATIVE Urine Total Protein 17.1 H Bedside Glucose 107 89 90 Test 05/17/16 21:42 05/18/16 01:26 05/18/16 04:50 05/18/16 05:41 Bedside Glucose 97 93 92 White Blood Count 4.4 #L Red Blood Count 2.33 L Hemoglobin 8.0 L Hematocrit 25.2 L Mean Corpuscular Volume 108.2 H Mean Corpuscular Hemoglobin 34.3 H Mean Corpuscular Hemoglobin Concent 31.7 L Red Cell Distribution Width 17.6 H Platelet Count 184 Mean Platelet Volume 10.6 H Neutrophils % 59.9 Lymphocytes % 19.1 Monocytes % 13.0 H Eosinophils % 6.4 Basophils % 0.2 Nucleated Red Blood Cells % 0.0 Neutrophils # 2.6 Lymphocytes # 0.8 Monocytes # 0.6 Eosinophils # 0.3 Basophils # 0.0 Nucleated Red Blood Cells # 0.0 Sodium Level 144 Potassium Level 3.4 L Chloride Level 109 Carbon Dioxide Level 28 Anion Gap 10 Blood Urea Nitrogen 41 H Creatinine 1.22 Glucose Level 92 Calcium Level 8.8 Phosphorus Level 4.1 Magnesium Level 2.5 Medications Medications Current Medications Acetaminophen (Tylenol Liquid) 650 mg Q6H PRN GTB PAIN AND OR ELEVATED TEMP; Start 05/17/16 at 02:00 Acetaminophen (Tylenol Supp) 650 mg Q6H PRN IN IF GTB ROUTE NOT EFFECTIVE; Start 05/17/16 at 02:00 Acetazolamide (Diamox) 500 mg DAILY IV Last administered on 05/17/16t 09:09; Admin Dose 500 MG; Start 05/17/16 at 09:00 Bisacodyl (Dulcolax Supp) 10 mg DAILY PRN IN CONSTIPATION; Start 05/17/16 at 02 :00 Insulin Aspart (Novolog Insulin Pen) NOVOLOG *MILD* ALGORI... Q6 SC ; Start at 06:00 Digoxin (Digoxin) 0.125 mg DAILY@13 GTB Last administered on 05/17/16 12:45; Admin Dose 0.125 MG; Start 05/17/16 at 13:00 Famotidine (Pepcid Iv) 20 mg DAILY IV Last administered on 05/17/16 09:08; Admin Dose 20 MG; Start 05/17/16 at 09:00 Finasteride (Proscar) 5 mg DAILY GTB Last administered on 05/17/16 09:08; Admin Dose 5 MG; Start 05/17/16 at 09:00 Heparin Sodium (Porcine) (Heparin (5000 Units/0.5 ml)) 5,000 unit BID SC Last administered on 05/17/16 20:30; Admin Dose 5,000 UNIT; Start 05/17/16 at 09:00 Acetaminophen/ Hydrocodone Bitart (Lortab Liq) 10 ml Q6H PRN PO PAIN Last administered on 05/18/16 01:27; Admin Dose 10 ML; Start 05/17/16 at 02:00 Lactulose 20 gm 20 gm DAILY PO Last administered on 05/17/16 09:08; Admin Dose 20 GM; Start 05/17/16 at 09:00 Levetiracetam/ Dextrose (Keppra Iv/D5W) 107.5 ml @ 430 mls/hr Q12 IVPB Last administered on 05/17/16 20:27; Admin Dose 430 MLS/HR; Start 05/17/16 at 09:00 Lidocaine (Lidoderm) 1 patch DAILY TD Last administered on 05/17/16 09:09; Admin Dose 1 PATCH; Start 05/17/16 at 09:00 Lidocaine (Xylocaine (Viscous)) 15 ml TID PO Last administered on 05/17/16 20: 36; Admin Dose 15 ML; Start 05/17/16 at 09:00 Metoprolol Tartrate (Lopressor) 25 mg BID GTB Last administered on 05/17/16 20 :26; Admin Dose 25 MG; Start 05/17/16 at 09:00 Ondansetron HCl (Zofran Inj) 4 mg Q8 PRN IV NAUSEA AND/OR VOMITING; Start 05/17 at 02:00 Polyethylene Glycol (Miralax) 17 gm DAILY PO Last administered on 05/17/16 09: 09; Admin Dose 17 GM; Start 05/17/16 at 09:00 IV Flush (NS 10 ml) 10 ml Q8 IV Last administered on 05/18/16 06:20; Admin Dose 10 ML; Start 05/17/16 at 06:00 Senna (Senokot) 2 tab DAILY PO Last administered on 05/17/16 09:08; Admin Dose 2 TAB; Start 05/17/16 at 09:00 Simethicone (Mylicon) 80 mg Q6H PRN PO DISTENSION/GAS/BLOATING; Start 05/17/16 at 02:00 Miscellaneous Information 1 ea NOTE XX ; Start 05/17/16 at 02:45 Glucose (Glutose) 15 gm Q15M PRN PO DECREASED GLUCOSE; Start 05/17/16 at 02:45 Glucose (Glutose) 22.5 gm Q15M PRN PO DECREASED GLUCOSE; Start 05/17/16 at 02: 45 Dextrose (D50w Syringe) 25 ml Q15M PRN IV DECREASED GLUCOSE; Start 05/17/16 at 02:45 Dextrose (D50w Syringe) 50 ml Q15M PRN IV DECREASED GLUCOSE; Start 05/17/16 at 02:45 Glucagon (Glucagen) 1 mg Q15M PRN IM DECREASED GLUCOSE; Start 05/17/16 at 02:45 Glucose 15 gm 15 gm Q15M PRN BUCCAL DECREASED GLUCOSE; Start 05/17/16 at 02:45 Dextrose 1,000 ml @ 50 mls/hr Q20H IV Last administered on 05/18/16 06:20; Admin Dose 50 MLS/HR; Start 05/17/16 at 07:30 Cefepime HCl 50 ml @ 100 mls/hr Q12 IVPB Last administered on 05/17/16 20:26 ; Admin Dose 100 MLS/HR; Start 05/17/16 at 21:00 Vancomycin HCl/ Sodium Chloride (Vancocin/NS) 150 ml @ 75 mls/hr Q12H IVPB Last administered on 05/18/16 04:06; Admin Dose 75 MLS/HR; Start 05/18/16 at 04 :30 MARIA C OWEN May 18, 2016 09:43
[2016-05-18] MEDS: ACETAZOLAMIDE 500 MG INJ IV SCH (12:38)
[2016-05-18] MEDS: DIGOXIN 0.125 MG TAB GTB SCH (12:38)
--- NOTE | 2016-05-18 17:58 | CONS ---
Date/Time of Note Date/Time of Note DATE: 05/18/16 TIME: 17:25 Assessment/Plan Assessment/Plan Chief Complaint/Hosp Course ID SHORT NOTE => Full consult note dictation to follow 65 yo M apparently transferred from [facility] after acute cardio-pulmonary arrest due to mucous plugging, now stabilized in [facility] ICU, started on broad spectrum ABX coverage with Vancomycin IV + Cefepime. * The patient's eyes are open and he is tracking; however he is non-verbal. No fevers, VSS, NAD, appears calm and comfortable on the ventilator. * ROS not obtainable from the patient; however recent events and chart reviewed. NOTE: [place] Records not wholly available for review. * Result Diagram: 05/18/1644905/18/16449 BIGHORN MICRO RESULTS: 05/13/16 (-)MRSA Nares 05/13/16 (-)VRE Stool Screen 05/13/16 (-)CRKP Stool Screen 05/14/16 (-)C.Diff toxin 05/13/16 (+)Funguria => Low colony counts URINE CULTURE Final Organism 1 ERIKA ALBICANS COLONY COUNT <10,000 CFU/ml 05/13/16 RESPIRATORY SPUTUM CX: GRAM STAIN Final POLYMORPH. LEUKOCYTE RARE . NO ORGANISM SEEN RESPIRATORY CULTURE Final NO GROWTH AFTER 2 DAYS 05/17/16 CXR: IMPRESSION: * 1. There has been slight interval worsening of the pulmonary infiltrates in the right lung when compared to the prior study. Otherwise, stable chest x- ray. * 2. Stable positioning of the tracheostomy tube. 05/17/16 CT BRAIN IMPRESSION: * Severe atrophy. * Old posterior right parietal lobe infarct with cystic encephalomalacia. * White matter disease compatible with chronic small vessel ischemia. * No intracranial hemorrhage or mass. 05/15/15 2D ECHO Conclusions 1. Normal left ventricular systolic function. Normal left ventricular cavity size. Mild concentric left ventricular hypertrophy. * Ejection fraction is visually estimated at 60 %. Tissue Doppler/Mitral Doppler indices are consistent with impaired relaxation (Stage I diastolic dysfunction). 2. Mitral valve is not well visualized. Mitral valve leaflets appear mildly thickened, posterior leaflet prolapse can not be ruled out. * Moderate mitral annular calcification. Mild to moderate mitral valve regurgitation. The regurgitation jet is eccentrically directed which may underestimate the severity of mitral regurgitation. 3. No significant aortic stenosis or insufficiency. Aortic cusps appear mildly calcified. 4. Normal appearance of the tricuspid valve. Estimated peak PA systolic pressure 42 mmHg. There is trace tricuspid regurgitation. 5. Inferior vena cava without respiratory collapse, however, patient on ventilator. ```````````````````````````````````````````````````````````````````````````````` ` ID ASSESSMENT AND PLAN: 65 yo M transferred to [facility] ICU from [facility] after acute cardio-pulmonary arrest due to mucous plugging. * Apparently he was admitted to [place] on 05/13/16 for continued pulmonary VDRF management following acute sepsis due to bilateral HCAP. PROBLEMS 1. Hx of hemorrhagic CVA w/sequelae of Seizure disorder, VDRF, Trach, Peg 2. Chronic hydrocephalus 3. HTN w/HTN Heart Disease: Moderate LVH w/STG I Diastolic Dysfx, EF 65% 4. Hx of prior CHF 5. Mitral Valve Insufficiency 6. Hx of Bacterial Endocarditis 7. CAD 8. Arrhythmia, history of SVT.-> On beta hunter 9. Dysphagia -> (+)Peg 10. HCAP -> s/p Pulmonary sepsis 11. Hx of VATS 12. Anemia of chronic disease 13. Urinary retention and benign prostatic hypertrophy-> on Proscar. * 05/13/16 Funguria w/low colony counts 10,000 14. Hyponatremia. 15 INCOMPLETE DATABASE ID RECOMMENDATIONS 1. Continue current ABX Vanco IV + Cefepime 2. Repeat sputum for C&S 3. Continue supportive care. * Thank you for the privilege of ID consultation referral - Will follow the patient closely with you - further recommendations pending. Problems: Consultation Date/Type/Reason Admit Date/Time May 17, 2016 at 01:40 Initial Consult Date 05/17/16 Type of Consultation: id Exam/Review of Systems Vital Signs Vitals Vital Signs Date Time Temp Pulse Resp B/P Pulse Ox O2 Delivery O2 Flow Rate FiO2 05/18/16 16:08 96 05/18/16 16:00 30 05/18/16 15:10 24 100 05/18/16 15:00 116/75 Mechanical Ventilator 05/18/16 12:00 99.0 Intake and Output 05/17/16 05/17/16 05/18/16 15:00 23:00 07:00 Intake Total 763.333 ml 299.999 ml Output Total 275 ml 280 ml 365 ml Balance 488.333 ml 19.999 ml -365 ml Results Result Diagram: 05/18/16 0450 05/18/16 0450 Results 24 hrs Laboratory Tests Test 05/17/16 17:52 05/17/16 21:42 05/18/16 01:26 05/18/16 04:50 Bedside Glucose 90 97 93 White Blood Count 4.4 #L Red Blood Count 2.33 L Hemoglobin 8.0 L Hematocrit 25.2 L Mean Corpuscular Volume 108.2 H Mean Corpuscular Hemoglobin 34.3 H Mean Corpuscular Hemoglobin Concent 31.7 L Red Cell Distribution Width 17.6 H Platelet Count 184 Mean Platelet Volume 10.6 H Neutrophils % 59.9 Lymphocytes % 19.1 Monocytes % 13.0 H Eosinophils % 6.4 Basophils % 0.2 Nucleated Red Blood Cells % 0.0 Neutrophils # 2.6 Lymphocytes # 0.8 Monocytes # 0.6 Eosinophils # 0.3 Basophils # 0.0 Nucleated Red Blood Cells # 0.0 Sodium Level 144 Potassium Level 3.4 L Chloride Level 109 Carbon Dioxide Level 28 Anion Gap 10 Blood Urea Nitrogen 41 H Creatinine 1.22 Glucose Level 92 Calcium Level 8.8 Phosphorus Level 4.1 Magnesium Level 2.5 Test 05/18/16 05:41 05/18/16 11:40 05/18/16 17:17 Bedside Glucose 92 103 116 Medications Medications Current Medications Acetaminophen (Tylenol Liquid) 650 mg Q6H PRN GTB PAIN AND OR ELEVATED TEMP; Start 05/17/16 at 02:00 Acetaminophen (Tylenol Supp) 650 mg Q6H PRN SD IF GTB ROUTE NOT EFFECTIVE; Start 05/17/16 at 02:00 Acetazolamide (Diamox) 500 mg DAILY IV Last administered on 05/18/16t 12:38; Admin Dose 500 MG; Start 05/17/16 at 09:00 Bisacodyl (Dulcolax Supp) 10 mg DAILY PRN SD CONSTIPATION; Start 05/17/16 at 02 :00 Insulin Aspart (Novolog Insulin Pen) NOVOLOG *MILD* ALGORI... Q6 SC ; Start at 06:00 Digoxin (Digoxin) 0.125 mg DAILY@13 GTB Last administered on 05/18/16 12:38; Admin Dose 0.125 MG; Start 05/17/16 at 13:00 Famotidine (Pepcid Iv) 20 mg DAILY IV Last administered on 05/18/16 09:43; Admin Dose 20 MG; Start 05/17/16 at 09:00 Finasteride (Proscar) 5 mg DAILY GTB Last administered on 05/18/16 09:35; Admin Dose 5 MG; Start 05/17/16 at 09:00 Heparin Sodium (Porcine) (Heparin (5000 Units/0.5 ml)) 5,000 unit BID SC Last administered on 05/18/16 09:37; Admin Dose 5,000 UNIT; Start 05/17/16 at 09:00 Acetaminophen/ Hydrocodone Bitart (Lortab Liq) 10 ml Q6H PRN PO PAIN Last administered on 05/18/16 01:27; Admin Dose 10 ML; Start 05/17/16 at 02:00 Lactulose 20 gm 20 gm DAILY PO Last administered on 05/18/16 09:33; Admin Dose 20 GM; Start 05/17/16 at 09:00 Levetiracetam/ Dextrose (Keppra Iv/D5W) 107.5 ml @ 430 mls/hr Q12 IVPB Last administered on 05/18/16 09:35; Admin Dose 430 MLS/HR; Start 05/17/16 at 09:00 Lidocaine (Lidoderm) 1 patch DAILY TD Last administered on 05/18/16 09:34; Admin Dose 1 PATCH; Start 05/17/16 at 09:00 Lidocaine (Xylocaine (Viscous)) 15 ml TID PO Last administered on 05/18/16 12: 38; Admin Dose 15 ML; Start 05/17/16 at 09:00 Metoprolol Tartrate (Lopressor) 25 mg BID GTB Last administered on 05/18/16 09 :35; Admin Dose 25 MG; Start 05/17/16 at 09:00 Ondansetron HCl (Zofran Inj) 4 mg Q8 PRN IV NAUSEA AND/OR VOMITING; Start 05/17 at 02:00 Polyethylene Glycol (Miralax) 17 gm DAILY PO Last administered on 05/18/16 09: 35; Admin Dose 17 GM; Start 05/17/16 at 09:00 IV Flush (NS 10 ml) 10 ml Q8 IV Last administered on 05/18/16 14:00; Admin Dose 10 ML; Start 05/17/16 at 06:00 Senna (Senokot) 2 tab DAILY PO Last administered on 05/18/16 09:35; Admin Dose 2 TAB; Start 05/17/16 at 09:00 Simethicone (Mylicon) 80 mg Q6H PRN PO DISTENSION/GAS/BLOATING; Start 05/17/16 at 02:00 Miscellaneous Information 1 ea NOTE XX ; Start 05/17/16 at 02:45 Glucose (Glutose) 15 gm Q15M PRN PO DECREASED GLUCOSE; Start 05/17/16 at 02:45 Glucose (Glutose) 22.5 gm Q15M PRN PO DECREASED GLUCOSE; Start 05/17/16 at 02: 45 Dextrose (D50w Syringe) 25 ml Q15M PRN IV DECREASED GLUCOSE; Start 05/17/16 at 02:45 Dextrose (D50w Syringe) 50 ml Q15M PRN IV DECREASED GLUCOSE; Start 05/17/16 at 02:45 Glucagon (Glucagen) 1 mg Q15M PRN IM DECREASED GLUCOSE; Start 05/17/16 at 02:45 Glucose 15 gm 15 gm Q15M PRN BUCCAL DECREASED GLUCOSE; Start 05/17/16 at 02:45 Dextrose 1,000 ml @ 50 mls/hr Q20H IV Last administered on 05/18/16 16:52; Admin Dose 50 MLS/HR; Start 05/17/16 at 07:30 Cefepime HCl 50 ml @ 100 mls/hr Q12 IVPB Last administered on 05/18/16 09:35 ; Admin Dose 100 MLS/HR; Start 05/17/16 at 21:00 Vancomycin HCl/ Sodium Chloride (Vancocin/NS) 150 ml @ 75 mls/hr Q12H IVPB Last administered on 05/18/16 16:57; Admin Dose 75 MLS/HR; Start 05/18/16 at 04 :30 Miscellaneous Information (*Rx Drug Level Order Reminder*) VANCOMYCIN TROUGH AT 0300 ONCE ONCE XX ; Start 05/19/16 at 03:00; Stop 05/19/16 at 03:01 ZHANE MOYA NP May 18, 2016 17:36
[2016-05-19] VITALS (31 sets, daily range): BP systolic 101–127; BP diastolic 63–87; PULSE 89–154; RESP 18–29
[2016-05-19] MEDS: IPRATROPIUM (HFA) 12.9 GM INHALER INH SCH ×6 (00:25→21:22)
[2016-05-19 03:31] LABS: ADD SCAN DIFF NO
[2016-05-19 03:52] LABS: BASOPHILS % 0.4 % (0.0-2.0); EOSINOPHILS # 0.4 10^3/ul (0.0-0.5); EOSINOPHILS % 8.5 % (0.0-7.0); HEMOGLOBIN 8.1 g/dl (14.0-18.0); LYMPHOCYTES % 18.8 % (15.0-51.0); MEAN CORPUSCULAR HGB CONC 31.2 g/dl (32.0-37.0); MEAN CORPUSCULAR VOLUME 109.2 fl (82.0-101.0); MEAN PLATELET VOLUME 10.3 fl (7.4-10.4); MONOCYTE # 0.6 10^3/ul (0.3-0.9); MONOCYTES % 12.4 % (0.0-11.0); NEUTROPHILS % 58.5 % (39.0-77.0); PLATELET COUNT 200 10^3/UL (140-415); RED BLOOD COUNT 2.38 10^6/ul (4.70-6.10); RED CELL DISTRIBUTION WIDTH 17.3 % (11.5-14.5); WHITE BLOOD COUNT 5.2 10^3/ul (4.8-10.8)
--- NOTE | 2016-05-19 03:53 | CONS ---
DATE OF ADMISSION: 05/17/2016 DATE OF CONSULTATION: TYPE OF CONSULTATION: Infectious disease. REQUESTING PHYSICIAN: Dr. Ray Kraft I am seeing this patient for Dr. Jam Tariq. HISTORY OF PRESENT ILLNESS: The patient is a 65-year-old white single male who was admitted from a alf facility who is status post arrest. The patient was admitted first to [facility] and then to the emergency room here after sustaining a hypercapnic respiratory failure followed b y requiring intervention on several occasions and then had a pulseless electrical activity arrest. The patient was resuscitated for 45 minutes with CPR until he spontaneously had return of circulatio n. On admission, his white count was 6800. Sodium 148, BUN 44, creatinine 1.17. The patient was a dmitted to intensive care unit. Chest x-ray revealed right-sided pneumonia. He is on a respirator and intravenous fluids. He was begun treatment with vancomycin and cefepime. The patient has a pas t medical history of bacterial endocarditis resulting in a cerebrovascular accident with a right hem iplegia from his cerebral embolus and subsequent infarction from acute bacterial endocarditis by Sta phylococcus aureus. Since then, he has had a shunt and has been unable to move the right side of hi s body much. He has a seizure disorder. He sustained history of deep vein thrombosis resulting in placement of an IVC [place] filter and also has had a problem with benign prostatic hypertrophy w ith urinary retention. He had bilateral pneumonia at [facility] in February. ALLERGIES: HE HAS NO KNOWN ALLERGIES. PAST SURGICAL HISTORY: Consisted of a PEG and tracheostomy. MEDICATIONS: Ordinarily include 1. Depakote 2. Metoprolol. 3. Remeron. 4. Keppra. 5. Xarelto. 6. Lamisil. PHYSICAL EXAMINATION: GENERAL: Reveals a chronically ill appearing white male lying in bed with a respirator, May domingo ter in place, IV fluids going. HEENT: The pupils are reactive to light. There is no scleral icterus. Mouth has thickened secreti ons. NECK: Supple. There is no jugular venous distention. CHEST: Bilateral rhonchi with the right being much greater than the left. The tracheostomy which h as no drainage or bleeding or obstruction. UPPER EXTREMITIES: The patient can only move his left arm that I could see. ABDOMEN: Soft. There is a G-tube present. There is no obstruction or bleeding or exudate. The rosmery wel sounds were absent. LOWER EXTREMITIES: The patient had some muscular atrophy of his lower extremities, the right being greater than the left one. INITIAL IMPRESSION: 1. Hypercapnic respiratory failure. 2. Pulseless electrical activity arrest. 3. Hypernatremic dehydration. 4. Seizure disorder. 5. Hydrocephalus. 6. History of cerebral hemorrhage with right embolic cerebral hemorrhage from acute bacterial endoc arditis due to Staphylococcus aureus in the year 1999. 7. History of deep vein thrombosis and an IVC filter. 8. Long-term anticoagulation. RECOMMENDATIONS: Cultures are pending. There are no organisms of opportunity at the present time. I would continue the vancomycin but would add Zosyn instead discontinuing the cefepime as cefepime is too broad and too ____ for probable aspiration pneumonia. Dictated By: Brian ORTEGA MD EC/NTS Conf#: [id number] DID#: [id number]
[2016-05-19 04:03] LABS: POTASSIUM 3.3 mmol/L (3.5-5.1)
[2016-05-19 04:06] LABS: CREATININE 1.15 mg/dl (0.61-1.24)
[2016-05-19 04:07] LABS: CALCIUM 8.8 mg/dl (8.4-10.2); MAGNESIUM 2.4 mg/dl (1.7-2.5); PHOSPHORUS 3.7 mg/dl (2.5-4.9)
[2016-05-19] MEDS: VANCOMYCIN 750 MG in SOD CHLORIDE 0.9% 150 ML IVPB SCH (04:30)
[2016-05-19] MEDS: INSULIN ASPART [NOVOLOG] 3 ML PEN SC SCH ×4 (06:00→18:00)
[2016-05-19] MEDS: PIPER-TAZO 3.375 GM IV (PMX) 100 ML IVPB SCH ×3 (06:22→21:29)
[2016-05-19] MEDS ORDERED: POTASSIUM CHLORIDE 20 MEQ POWDER FOR ORAL SOLN GTB ONE (08:00)
--- NOTE | 2016-05-19 08:01 | PN ---
DATE: CARDIOLOGY PROGRESS NOTE SUBJECTIVE: The patient is nonresponsive status post cardiac arrest. [facility] yesterday repo rted 1 minute of asystole necessitating subsequent resuscitation and placement back on the vent. Th e patient did not require any inotropic agents for hemodynamic support. PHYSICAL EXAMINATION: VITAL SIGNS: On ventilator. Temperature 98.2, pulse sinus tachycardia at 125, blood pressure 127/__ ___, oxygen saturation 97%. LUNGS: Decreased breath sounds bilaterally. CARDIAC: Regular tachycardic rhythm. ABDOMEN: Obese, somewhat contracted. CURRENT MEDICATIONS 1. Vancomycin. 2. Cefepime. 3. Digoxin. 4. Diamox. 5. Famotidine. 6. Finasteride. 7. Heparin. LABORATORY RESULTS: White count 4.4, hematocrit 25.2, platelet count 184. Sodium 144, potassium 3. 4, BUN 41, creatinine 1.2. Potassium has been replaced. ASSESSMENT: Respiratory failure on ventilator status post cardiac arrest, most likely respiratory i n etiology. Multiple other comorbidities. Continue current medications and treatment at this time. Dictated By: ROBERTO CARLOS SILVER/JAYNA Conf#: [id number] DID#: [id number]
--- NOTE | 2016-05-19 09:09 | PN ---
DATE: 05/19/2016 SUBJECTIVE: The patient is stable, no acute events overnight. No hemoptysis, hematemesis or hemato chezia. OBJECTIVE: VITAL SIGNS: Blood pressure 106/62, respiration 18, pulse is 92, temperature 98.3. I's AND O'S: The patient 2.6 L in, 1.8 L out. HEENT: Head is normocephalic. NECK: Supple. HEART: Regular rate. LUNGS: Show diminished breath sounds at base. ABDOMEN: Soft, nontender to palpation without rebound or guarding. EXTREMITIES: Negative for clubbing, cyanosis and no edema. DERMATOLOGIC: No rashes. MUSCULOSKELETAL: No joint effusions. NEUROLOGIC: No change in exam. MEDICATIONS: The patient's medications have been reviewed. LABORATORY DATA: Showed sodium 147, potassium , chloride 112, BUN 37, creatinine 1.15. White count 5.2, hemoglobin 8.1, hematocrit 26.0, platelet count 200. ASSESSMENT AND PLAN: 1. Status post code arrest. Etiology is likely secondary to mucous plug. The patient is currently clinically stable. Continue current treatment plan, supportive care, renally dose medications. 2. Ventilator dependent respiratory failure. Vent settings have been reviewed. ABG has been revie wed. Continue current vent settings. 3. Aspiration pneumonia. Continue current antibiotic regimen. Follow up with infectious disease. 4. Coronary artery disease. Continue current medical management. 5. Arrhythmia. Continue to monitor. Continue metoprolol and digoxin. Follow up with cardiology r ecommendations. 6. Dysphagia. continue tube feeds. 7. Anemia of chronic disease. Continue to monitor H and H levels. 8. Hypernatremia. We will increase free water flushes 200 mL q. 4 hours. 9. Hypokalemia. Replete potassium chloride. 10. Seizure disorder. Continue Keppra. 11. History of deep venous thrombosis, status post inferior vena cava filter. 12. Hypertension. Continue current blood pressure regimen. 13. Previous history of hemorrhagic cerebrovascular accident. Continue to monitor. 14. History of congestive heart failure currently compensated. Continue medical management. 15. History of endocarditis. 16. Gastrointestinal and deep venous thrombosis prophylaxis. Continue proton pump inhibitor and he yisel. Dictated By: DOLLY OROSCO/JAYNA Conf#: [id number] DID#: [id number]
[2016-05-19] MEDS: METOPROLOL 25 MG TAB GTB SCH ×2 (09:45→21:30)
[2016-05-19] MEDS: FINASTERIDE 5 MG TAB GTB SCH (09:46)
[2016-05-19] MEDS: ACETAZOLAMIDE 500 MG INJ IV SCH (09:46)
[2016-05-19] MEDS: LACTULOSE 30ML CUP PO SCH (09:48)
[2016-05-19] MEDS: POLYETHYLENE GLYCOL 17 GM PACKET PO SCH (09:49)
[2016-05-19] MEDS: SENNA TAB PO SCH (09:50)
[2016-05-19] MEDS: LIDOCAINE 2% VISC 15 ML CUP PO SCH ×3 (09:50→21:30)
[2016-05-19] MEDS: LIDOCAINE 5% PATCH TD SCH (09:51)
[2016-05-19] MEDS: HEPARIN 5,000 UNIT/0.5 ML SYG SC SCH ×2 (10:01→21:40)
--- NOTE | 2016-05-19 10:01 | RADRPT ---
PROCEDURE: Chest Radiograph. CLINICAL INDICATION: Pneumonia TECHNIQUE: Single frontal chest radiograph. COMPARISON: Chest radiograph 05/17/2016 FINDINGS: A tracheostomy tube remains in place. The patient is rotated limiting evaluation of heart size. Th ere is elevation of the left hemidiaphragm. Patchy bilateral infiltrates are stable in distribution and extent.. The bones are unchanged. IMPRESSION: 1. Stable radiographic appearance of chest compared 05/17/2016. RPTAT: KK .Gustavo Kruse MD, MD Date Time Electronically viewed and signed by .Gustavo Kruse MD, MD on 05/19/2016 10:01 .B/
[2016-05-19] MEDS: FAMOTIDINE 20 MG INJ IV SCH (10:03)
[2016-05-19] MEDS: LEVETIRACETAM IV 750 MG in DEXTROSE 5% 100 ML IVPB SCH ×2 (10:04→21:29)
[2016-05-19] MEDS ORDERED: DIGOXIN 500 MCG INJ IV ONE (10:30)
--- NOTE | 2016-05-19 10:35 | CONS ---
Date/Time of Note Date/Time of Note DATE: 05/19/16 TIME: 10:32 Consult Date/Type/Reason Admit Date/Time May 17, 2016 at 01:40 Initial Consult Date 05/17/16 Type of Consultation: pulmonary Subjective Patient continues mechanical ventilation eyes open but not following commands Currently not requiring vasopressor support Remains hemodynamically stable Objective Vital Signs Date Time Temp Pulse Resp B/P Pulse Ox O2 Delivery O2 Flow Rate FiO2 05/19/16 09:00 114 24 99 30 05/19/16 08:00 119/77 05/19/16 08:00 98.3 05/19/16 04:00 Mechanical Ventilator Intake and Output 05/18/16 05/18/16 05/19/16 15:00 23:00 07:00 Intake Total 617.5 ml 780 ml 1140 ml Output Total 360 ml 150 ml 1250 ml Balance 257.5 ml 630 ml -110 ml Exam PHYSICAL EXAMINATION GENERAL: Elderly gentleman, on mechanical ventilation via tracheostomy VITAL SIGNS: see below. HEENT: Pupils equal, round, and reactive to light. Tracheostomy site clean and intact. CARDIAC: S1, S2, tachycardia. CHEST: Diminished air entry bilaterally. ABDOMEN: Mildly distended. Diminished bowel sounds bilaterally EXTREMITIES: No cyanosis, clubbing edema +2 NEUROLOGIC: Generalized weakness Results/Medications Result Diagram: 05/19/16 0315 05/19/16 0315 Results 24 hrs Laboratory Tests Test 05/18/16 11:40 05/18/16 17:17 05/19/16 00:33 05/19/16 03:15 Bedside Glucose 103 116 127 White Blood Count 5.2 Red Blood Count 2.38 L Hemoglobin 8.1 L Hematocrit 26.0 L Mean Corpuscular Volume 109.2 H Mean Corpuscular Hemoglobin 34.0 H Mean Corpuscular Hemoglobin Concent 31.2 L Red Cell Distribution Width 17.3 H Platelet Count 200 Mean Platelet Volume 10.3 Neutrophils % 58.5 Lymphocytes % 18.8 Monocytes % 12.4 H Eosinophils % 8.5 H Basophils % 0.4 Nucleated Red Blood Cells % 0.0 Neutrophils # 3.0 Lymphocytes # 1.0 Monocytes # 0.6 Eosinophils # 0.4 Basophils # 0.0 Nucleated Red Blood Cells # 0.0 Sodium Level 147 H Potassium Level 3.3 L Chloride Level 112 H Carbon Dioxide Level 26 Anion Gap 12 Blood Urea Nitrogen 37 H Creatinine 1.15 Glucose Level 123 Calcium Level 8.8 Phosphorus Level 3.7 Magnesium Level 2.4 Vancomycin Level Trough 28.9 *H Test 05/19/16 06:15 Bedside Glucose 122 Medications Current Medications Acetaminophen (Tylenol Liquid) 650 mg Q6H PRN GTB PAIN AND OR ELEVATED TEMP; Start 05/17/16 at 02:00 Acetaminophen (Tylenol Supp) 650 mg Q6H PRN ME IF GTB ROUTE NOT EFFECTIVE; Start 05/17/16 at 02:00 Acetazolamide (Diamox) 500 mg DAILY IV Last administered on 05/19/16 09:46; Admin Dose 500 MG; Start 05/17/16 at 09:00 Bisacodyl (Dulcolax Supp) 10 mg DAILY PRN [place] CONSTIPATION; Start 05/17/16 at 02 :00 Insulin Aspart (Novolog Insulin Pen) NOVOLOG *MILD* ALGORI... Q6 SC ; Start at 06:00 Digoxin (Digoxin) 0.125 mg DAILY@13 GTB Last administered on 05/18/16 12:38; Admin Dose 0.125 MG; Start 05/17/16 at 13:00 Famotidine (Pepcid Iv) 20 mg DAILY IV Last administered on 05/19/16 10:03; Admin Dose 20 MG; Start 05/17/16 at 09:00 Finasteride (Proscar) 5 mg DAILY GTB Last administered on 05/19/16 09:46; Admin Dose 5 MG; Start 05/17/16 at 09:00 Heparin Sodium (Porcine) (Heparin (5000 Units/0.5 ml)) 5,000 unit BID SC Last administered on 05/19/16 10:01; Admin Dose 5,000 UNIT; Start 05/17/16 at 09:00 Acetaminophen/ Hydrocodone Bitart (Lortab Liq) 10 ml Q6H PRN PO PAIN Last administered on 05/18/16 01:27; Admin Dose 10 ML; Start 05/17/16 at 02:00 Lactulose 20 gm 20 gm DAILY PO Last administered on 05/19/16 09:48; Admin Dose 20 GM; Start 05/17/16 at 09:00 Levetiracetam/ Dextrose (Keppra Iv/D5W) 107.5 ml @ 430 mls/hr Q12 IVPB Last administered on 05/19/16 10:04; Admin Dose 430 MLS/HR; Start 05/17/16 at 09:00 Lidocaine (Lidoderm) 1 patch DAILY TD Last administered on 05/19/16 09:51; Admin Dose 1 PATCH; Start 05/17/16 at 09:00 Lidocaine (Xylocaine (Viscous)) 15 ml TID PO Last administered on 05/19/16 09: 50; Admin Dose 15 ML; Start 05/17/16 at 09:00 Metoprolol Tartrate (Lopressor) 25 mg BID GTB Last administered on 05/19/16 09 :45; Admin Dose 25 MG; Start 05/17/16 at 09:00 Ondansetron HCl (Zofran Inj) 4 mg Q8 PRN IV NAUSEA AND/OR VOMITING; Start 05/17 at 02:00 Polyethylene Glycol (Miralax) 17 gm DAILY PO Last administered on 05/19/16 09: 49; Admin Dose 17 GM; Start 05/17/16 at 09:00 IV Flush (NS 10 ml) 10 ml Q8 IV Last administered on 05/19/16 06:16; Admin Dose 10 ML; Start 05/17/16 at 06:00 Senna (Senokot) 2 tab DAILY PO Last administered on 05/19/16 09:50; Admin Dose 2 TAB; Start 05/17/16 at 09:00 Simethicone (Mylicon) 80 mg Q6H PRN PO DISTENSION/GAS/BLOATING; Start 05/17/16 at 02:00 Miscellaneous Information 1 ea NOTE XX ; Start 05/17/16 at 02:45 Glucose (Glutose) 15 gm Q15M PRN PO DECREASED GLUCOSE; Start 05/17/16 at 02:45 Glucose (Glutose) 22.5 gm Q15M PRN PO DECREASED GLUCOSE; Start 05/17/16 at 02: 45 Dextrose (D50w Syringe) 25 ml Q15M PRN IV DECREASED GLUCOSE; Start 05/17/16 at 02:45 Dextrose (D50w Syringe) 50 ml Q15M PRN IV DECREASED GLUCOSE; Start 05/17/16 at 02:45 Glucagon (Glucagen) 1 mg Q15M PRN IM DECREASED GLUCOSE; Start 05/17/16 at 02:45 Glucose 15 gm 15 gm Q15M PRN BUCCAL DECREASED GLUCOSE; Start 05/17/16 at 02:45 Vancomycin HCl 750 mg/Sodium Chloride 150 ml @ 75 mls/hr Q12H IVPB Last administered on 05/18/16 16:57; Admin Dose 75 MLS/HR; Start 05/18/16 at 04:30; Status Future Hold Piperacillin Sod/ Tazobactam Sod (Zosyn 3.375gm/ 100 ml (Pmx)) 100 ml @ 200 mls /hr Q8 IVPB Last administered on 05/19/16 06:22; Admin Dose 200 MLS/HR; Start 05/19/16 at 06:00; Stop 05/27/16 at 12:00 Miscellaneous Information (*Rx Drug Level Order Reminder*) VANCOMYCIN RANDOM LEVEL IN AM ONCE ONCE XX ; Start 05/20/16 at 05:00; Stop 05/20/16 at 05:01 Assessment/Plan Chief Complaint/Hosp Course Assessment 1. Severe sepsis likely polymicrobial possible aspiration pneumonia 2. Acute on chronic hypoxemic and hypercapnic respiratory failure 3. History of seizure disorder 4. History of anemia 5. Hypernatremia and hypokalemia Plan 1. Continue antibiotics currently on vancomycin and Zosyn consider de- escalation soon 2. Continue to feeding as tolerated 3. Consider transfusion 1 unit packed red blood cells given low hemoglobin 4. Continue to feeding as tolerated 5. Consider increasing free water per G-tube and correction of hypokalemia 6. DVT and GI prophylaxis Disposition Stable for transfer to telemetry [place] evaluation Problems: [facility] SHINE [facility], [facility] May 19, 2016 10:34
--- NOTE | 2016-05-19 11:14 | PN ---
DATE: 05/19/2016 SUBJECTIVE: Patient is lying comfortably in bed. His heart rate is in the 150s and nurse is giving him Lopressor. He is in no distress. VITAL SIGNS: Temperature 98.3, respirations 24, blood pressure 119/77, saturation 99% on 30 FIO2. LABORATORIES: WBC 5.2, H and H 8.1 and 26, platelets 200, no shift, no bands. BUN 37, creatinine 1 .15. INDWELLINGS: Trach, PEG, May. ANTIMICROBIALS: The patient is on: 1. Zosyn. 2. Vancomycin. MICROBIOLOGY: No new labs. Urinalysis on admission revealed trace leukocyte esterase, presence of white blood cell count, and f ew bacteria. DIAGNOSTICS: Chest x-ray showed patchy bilateral infiltrates. PHYSICAL EXAMINATION: GENERAL: Chronically ill-appearing, elderly man who is in no distress. HEENT: Head atraumatic, normocephalic. Sclerae anicteric. Buccal mucosa dry. NECK: Supple. Tracheostomy present. CHEST: Rise symmetrical. Breath sounds diminished to bases. HEART: S1, S2. ABDOMEN: Soft, bowel tones present. EXTREMITIES: Without cyanosis. ASSESSMENT: 1. Status post cardiopulmonary arrest, possibly secondary to mucus plugs. 2. Healthcare-associated pneumonia. 3. Arrhythmia. 4. Anemia. 6. Seizure disorder. 7. History of deep venous thrombosis with inferior vena cava filter placement. 8. History of endocarditis. PLAN: The patient remains clinically stable. Heart rate responding to Lopressor, currently 110. H e is on broad spectrum antibiotics for pneumonia. We will order sputum culture and urine cultures. Continue present care. Follow cardiology and pulmonary recommendations. Dictated By: ANNA SMITH [employer] for THANG MEEKS/JAYNA Conf#: [id number] DID#: [id number]
--- NOTE | 2016-05-19 13:14 | RADRPT ---
Vent Rate: 100 bpm RR Interval: 0 msec HI Interval: 182 msec QRS Duration: 118 msec QT Interval: 342 msec QTC Interval: 441 msec P-R-T [place]: 63 - 83 - 72 degrees Normal sinus rhythm Possible Left atrial enlargement Incomplete right bundle branch block Septal infarct , age undetermined Lateral infarct , age undetermined Abnormal ECG Electronically Signed By: Eriberto Haas [id number]
[2016-05-19 14:02] LABS: MICROALBUMIN 0.4 mg/dL
[2016-05-19] MEDS: DIGOXIN 0.125 MG TAB GTB SCH (16:27)
[2016-05-20] VITALS (27 sets, daily range): BP systolic 86–126; BP diastolic 54–80; PULSE 86–121; RESP 18–28
[2016-05-20] MEDS: IPRATROPIUM (HFA) 12.9 GM INHALER INH SCH ×3 (01:22→09:40)
[2016-05-20 05:08] LABS: ADD SCAN DIFF NO
[2016-05-20 05:16] LABS: ABNORMAL IP MESSAGE 1; BASOPHILS % 0.2 % (0.0-2.0); EOSINOPHILS # 0.5 10^3/ul (0.0-0.5); EOSINOPHILS % 8.4 % (0.0-7.0); HEMATOCRIT 28.5 % (42.0-52.0); HEMOGLOBIN 8.9 g/dl (14.0-18.0); LYMPHOCYTES # 0.6 10^3/ul (0.8-2.9); LYMPHOCYTES % 9.8 % (15.0-51.0); MEAN CORPUSCULAR HGB CONC 31.2 g/dl (32.0-37.0); MEAN CORPUSCULAR VOLUME 108.8 fl (82.0-101.0); MEAN PLATELET VOLUME 10.2 fl (7.4-10.4); MONOCYTE # 0.7 10^3/ul (0.3-0.9); MONOCYTES % 11.8 % (0.0-11.0); NEUTROPHIL # 4.2 10^3/ul (1.6-7.5); NEUTROPHILS % 68.6 % (39.0-77.0); PLATELET COUNT 184 10^3/UL (140-415); RED BLOOD COUNT 2.62 10^6/ul (4.70-6.10); RED CELL DISTRIBUTION WIDTH 17.7 % (11.5-14.5)
[2016-05-20] MEDS: PIPER-TAZO 3.375 GM IV (PMX) 100 ML IVPB SCH ×2 (05:20→15:41)
[2016-05-20] MEDS: INSULIN ASPART [NOVOLOG] 3 ML PEN SC SCH ×3 (05:21→12:00)
[2016-05-20 06:25] LABS: POTASSIUM 3.6 mmol/L (3.5-5.1)
[2016-05-20 06:27] LABS: BILIRUBIN,INDIRECT 0.2 mg/dl (0-1.1); BILIRUBIN,TOTAL 0.2 mg/dl (0.2-1.3); CREATININE 1.13 mg/dl (0.61-1.24)
[2016-05-20 06:28] LABS: ALBUMIN/GLOBULIN RATIO 0.69; CALCIUM 8.4 mg/dl (8.4-10.2); TOTAL PROTEIN 7.3 g/dl (6.1-8.1)
[2016-05-20 07:20] LABS: POTASSIUM 3.7 mmol/L (3.5-5.1)
[2016-05-20 07:22] LABS: CREATININE 1.11 mg/dl (0.61-1.24)
[2016-05-20 07:23] LABS: CALCIUM 8.4 mg/dl (8.4-10.2); MAGNESIUM 2.4 mg/dl (1.7-2.5); PHOSPHORUS 3.2 mg/dl (2.5-4.9)
--- NOTE | 2016-05-20 07:36 | PN ---
DATE: 05/19/2016 CARDIOLOGY FOLLOWUP SUBJECTIVE: The patient remains in the ICU on the vent, nonverbal. Status post tracheostomy. Rhyt hm strip was reviewed, had episodes of SVT ____ 160. Converted back to sinus rhythm. The patient h as remained nonverbal. Discussed with the staff in the ICU. Discussed with Dr. Kraft. MEDICATIONS: Reviewed which includes: 1. Zosyn. 2. Digoxin 0.125. 3. Diamox. 4. Pepcid. 5. Proscar. 6. Lactulose. 7. Metoprolol 25. PHYSICAL EXAMINATION: VITAL SIGNS: Temperature 98.2, heart rate 93, blood pressure 119/77, respiration rate of 22, satura ting 100% on 30% vent. HEENT: Normocephalic, atraumatic. Pupils are equal. NECK: Status post tracheostomy, on the vent. CARDIOVASCULAR: Regular rate and rhythm, systolic murmur. PULMONARY: Anteriorly with no wheezes heard with mild rhonchi. GASTROINTESTINAL: Soft, nontender. EXTREMITIES: Positive ankle edema. NEUROLOGIC: Lethargic, does not answer questions. PSYCHIATRIC: Appears to be calm, there were multiple ecchymoses. LABORATORY: WBC of 5.2, hemoglobin 8.1, platelets of 200. Sodium 147, potassium 3.3, BUN of 37, cr eatinine 1.15, glucose of 123. ____ is 28.9. Chest x-ray shows stable radiographic compared to the previous x-ray. Bilateral infiltrate are stab le distribution. ASSESSMENT AND PLAN: 1. Status post cardiopulmonary arrest, most likely related to respiratory arrest. 2. ____ respiratory failure, status post tracheostomy, on the vent. 3. Arrhythmia with paroxysmal SVT. Will continue the digoxin and metoprolol. 4. Anemia. 5. History of mitral valve prolapse, endocarditis ____ antibiotic. 6. History of deep venous thrombosis, status of IVC filter placement. 7. Hypertension. 8. History of hemorrhagic CVA. 9. Encephalopathy. 10. Congestive heart failure. RECOMMENDATIONS: We will continue with supportive care. Digoxin and metoprolol will be continued. Vent support will be continued. Respiratory care as per ID and pulmonary recommendations. We will check the electrolytes and correct it as needed. Continue vent support. Dictated By: TAYLOR WATKINS MD AV/JAYNA Conf#: [id number] DID#: [id number] CC: DOLLY KRAFT DO;*[facility]*
[2016-05-20] MEDS: ACETAZOLAMIDE 500 MG INJ IV SCH (08:55)
[2016-05-20] MEDS: ACETAMINOPHEN 325/HYDROC 7.5 15 ML CUP PO PRN (08:55)
[2016-05-20] MEDS: FAMOTIDINE 20 MG INJ IV SCH (08:55)
[2016-05-20] MEDS: METOPROLOL 25 MG TAB GTB SCH (08:55)
[2016-05-20] MEDS: FINASTERIDE 5 MG TAB GTB SCH (08:55)
[2016-05-20] MEDS: HEPARIN 5,000 UNIT/0.5 ML SYG SC SCH (08:56)
[2016-05-20] MEDS: LIDOCAINE 5% PATCH TD SCH (08:58)
[2016-05-20] MEDS: LIDOCAINE 2% VISC 15 ML CUP PO SCH ×2 (09:00→13:00)
[2016-05-20] MEDS: LEVETIRACETAM IV 750 MG in DEXTROSE 5% 100 ML IVPB SCH (09:01)
[2016-05-20] MEDS ORDERED: SOD CHLORIDE 0.9% 500 ML IV ONE (09:30)
--- NOTE | 2016-05-20 09:34 | RADRPT ---
PROCEDURE: Chest 1 views. CLINICAL INDICATION: Shortness of breath TECHNIQUE: AP views of the chest was obtained. COMPARISON: Yesterday FINDINGS: The heart is large. Tracheostomy tube is stable and appears in grossly appropriate location. Centra l pulmonary vascular congestion and interstitial prominence in both lungs is unchanged. The lungs a re hypoinflated. Associated atelectasis/consolidation in the bilateral lower lungs is stable. Osse ous structures are unchanged. IMPRESSION: Cardiomegaly . Stable central pulmonary vascular congestion and interstitial prominence in both lungs. Hypoinflated lungs with stable bilateral lower lung atelectasis/consolidation. RPTAT: AA .Antonio Ba MD, MD Date Time Electronically viewed and signed by .Antonio Ba MD, on 05/20/2016 09:33 .P/
--- NOTE | 2016-05-20 11:20 | CONS ---
Date/Time of Note Date/Time of Note DATE: 05/20/16 TIME: 11:19 Consult Date/Type/Reason Admit Date/Time May 17, 2016 at 01:40 Initial Consult Date 05/17/16 Type of Consultation: pulmonary Subjective Patient remains comfortable this morning tube feeds and tolerated Increased heart rate noted Objective Vital Signs Date Time Temp Pulse Resp B/P Pulse Ox O2 Delivery O2 Flow Rate FiO2 05/20/16 10:00 86 21 112/65 98 Mechanical Ventilator 05/20/16 08:00 30 05/20/16 08:00 99.7 Intake and Output 05/19/16 05/19/16 05/20/16 15:00 23:00 07:00 Intake Total 480 ml 280 ml 1327.5 ml Output Total 400 ml 150 ml 400 ml Balance 80 ml 130 ml 927.5 ml Exam PHYSICAL EXAMINATION GENERAL: Elderly gentleman, on mechanical ventilation via tracheostomy VITAL SIGNS: see below. HEENT: Pupils equal, round, and reactive to light. Tracheostomy site clean and intact. CARDIAC: S1, S2, tachycardia. CHEST: Diminished air entry bilaterally. ABDOMEN: Mildly distended. Diminished bowel sounds bilaterally EXTREMITIES: No cyanosis, clubbing edema +2 NEUROLOGIC: Generalized weakness Results/Medications Result Diagram: 05/20/16 0455 05/20/16 0455 Results 24 hrs Laboratory Tests Test 05/19/16 11:30 05/19/16 12:24 05/19/16 19:19 05/20/16 00:48 Troponin I < 0.012 Bedside Glucose 124 117 113 Test 05/20/16 04:55 05/20/16 05:19 White Blood Count 6.0 Red Blood Count 2.62 L Hemoglobin 8.9 L Hematocrit 28.5 L Mean Corpuscular Volume 108.8 H Mean Corpuscular Hemoglobin 34.0 H Mean Corpuscular Hemoglobin Concent 31.2 L Red Cell Distribution Width 17.7 H Platelet Count 184 Mean Platelet Volume 10.2 Neutrophils % 68.6 Lymphocytes % 9.8 L Monocytes % 11.8 H Eosinophils % 8.4 H Basophils % 0.2 Nucleated Red Blood Cells % 0.0 Neutrophils # 4.2 Lymphocytes # 0.6 L Monocytes # 0.7 Eosinophils # 0.5 Basophils # 0.0 Nucleated Red Blood Cells # 0.0 Sodium Level 142 Potassium Level 3.6 Chloride Level 108 Carbon Dioxide Level 26 Anion Gap 12 Blood Urea Nitrogen 32 H Creatinine 1.13 Glucose Level 126 Calcium Level 8.4 Phosphorus Level 3.2 Magnesium Level 2.4 Total Bilirubin 0.2 Direct Bilirubin 0.00 Indirect Bilirubin 0.2 Aspartate Amino Transf (AST/SGOT) 77 H Alanine Aminotransferase (ALT/SGPT) 93 H Alkaline Phosphatase 190 H B-Type Natriuretic Peptide 2030 H Total Protein 7.3 Albumin 3.0 L Globulin 4.30 H Albumin/Globulin Ratio 0.69 Free Thyroxine 1.13 Random Vancomycin Level 18.2 Digoxin Level 1.1 Bedside Glucose 126 Medications Current Medications Acetaminophen (Tylenol Liquid) 650 mg Q6H PRN GTB PAIN AND OR ELEVATED TEMP; Start 05/17/16 at 02:00 Acetaminophen (Tylenol Supp) 650 mg Q6H PRN [place] IF GTB ROUTE NOT EFFECTIVE; Start 05/17/16 at 02:00 Acetazolamide (Diamox) 500 mg DAILY IV Last administered on 05/20/16 08:55; Admin Dose 500 MG; Start 05/17/16 at 09:00 Bisacodyl (Dulcolax Supp) 10 mg DAILY PRN [place] CONSTIPATION; Start 05/17/16 at 02 :00 Insulin Aspart (Novolog Insulin Pen) NOVOLOG *MILD* ALGORI... Q6 SC ; Start at 06:00 Digoxin (Digoxin) 0.125 mg DAILY@13 GTB Last administered on 05/19/16 16:27; Admin Dose 0.125 MG; Start 05/17/16 at 13:00 Famotidine (Pepcid Iv) 20 mg DAILY IV Last administered on 05/20/16 08:55; Admin Dose 20 MG; Start 05/17/16 at 09:00 Finasteride (Proscar) 5 mg DAILY GTB Last administered on 05/20/16 08:55; Admin Dose 5 MG; Start 05/17/16 at 09:00 Heparin Sodium (Porcine) (Heparin (5000 Units/0.5 ml)) 5,000 unit BID SC Last administered on 05/20/16 08:56; Admin Dose 5,000 UNIT; Start 05/17/16 at 09:00 Acetaminophen/ Hydrocodone Bitart (Lortab Liq) 10 ml Q6H PRN PO PAIN Last administered on 05/20/16 08:55; Admin Dose 10 ML; Start 05/17/16 at 02:00 Lactulose 20 gm 20 gm DAILY PO Last administered on 05/19/16 09:48; Admin Dose 20 GM; Start 05/17/16 at 09:00; Status Future Hold Levetiracetam/ Dextrose (Keppra Iv/D5W) 107.5 ml @ 430 mls/hr Q12 IVPB Last administered on 05/20/16 09:01; Admin Dose 430 MLS/HR; Start 05/17/16 at 09:00 Lidocaine (Lidoderm) 1 patch DAILY TD Last administered on 05/20/16 08:58; Admin Dose 1 PATCH; Start 05/17/16 at 09:00 Lidocaine (Xylocaine (Viscous)) 15 ml TID PO Last administered on 05/19/16 21: 30; Admin Dose 15 ML; Start 05/17/16 at 09:00 Metoprolol Tartrate (Lopressor) 25 mg BID GTB Last administered on 05/20/16 08 :55; Admin Dose 25 MG; Start 05/17/16 at 09:00 Ondansetron HCl (Zofran Inj) 4 mg Q8 PRN IV NAUSEA AND/OR VOMITING; Start 05/17 at 02:00 Polyethylene Glycol (Miralax) 17 gm DAILY PO Last administered on 05/19/16 09: 49; Admin Dose 17 GM; Start 05/17/16 at 09:00; Status Future Hold IV Flush (NS 10 ml) 10 ml Q8 IV Last administered on 05/20/16 05:20; Admin Dose 10 ML; Start 05/17/16 at 06:00 Senna (Senokot) 2 tab DAILY PO Last administered on 05/19/16 09:50; Admin Dose 2 TAB; Start 05/17/16 at 09:00; Status Future Hold Simethicone (Mylicon) 80 mg Q6H PRN PO DISTENSION/GAS/BLOATING; Start 05/17/16 at 02:00 Miscellaneous Information 1 ea NOTE XX ; Start 05/17/16 at 02:45 Glucose (Glutose) 15 gm Q15M PRN PO DECREASED GLUCOSE; Start 05/17/16 at 02:45 Glucose (Glutose) 22.5 gm Q15M PRN PO DECREASED GLUCOSE; Start 3/25/17 at 02: 45 Dextrose (D50w Syringe) 25 ml Q15M PRN IV DECREASED GLUCOSE; Start 05/17/16 at 02:45 Dextrose (D50w Syringe) 50 ml Q15M PRN IV DECREASED GLUCOSE; Start 05/17/16 at 02:45 Glucagon (Glucagen) 1 mg Q15M PRN IM DECREASED GLUCOSE; Start 05/17/16 at 02:45 Glucose 15 gm 15 gm Q15M PRN BUCCAL DECREASED GLUCOSE; Start 05/17/16 at 02:45 Piperacillin Sod/ Tazobactam Sod 100 ml @ 200 mls/hr Q8 IVPB Last administered on 05/20/16t 05:20; Admin Dose 200 MLS/HR; Start 05/19/16 at 06:00 ; Stop 05/27/16 at 12:00 Vancomycin HCl/ Sodium Chloride (Vancocin/NS) 150 ml @ 75 mls/hr Q48H IVPB ; Start 05/20/16 at 20:00 Assessment/Plan Chief Complaint/Hosp Course Assessment 1. Severe sepsis likely polymicrobial possible aspiration pneumonia 2. Acute on chronic hypoxemic and hypercapnic respiratory failure 3. History of seizure disorder 4. History of anemia 5. Hypernatremia and hypokalemia resolved Plan 1. Continue antibiotics currently on vancomycin and Zosyn consider de- escalation soon 2. Continue to feeding as tolerated 3. Monitor H&H transfusion of packed cells if needed 4. Continue to feeding as tolerated 5. Continue free water per G-tube 6. DVT and GI prophylaxis Disposition Stable for transfer to [facility] evaluation Problems: [facility], [facility] May [facility], 2016 11:20
--- NOTE | 2016-05-20 12:22 | CONS ---
Date/Time of Note Date/Time of Note DATE: 05/20/16 TIME: 12:20 Assessment/Plan Assessment/Plan Chief Complaint/Hosp Course SUBJECTIVE: Patient is lying comfortably in bed. T max 99.7 He is in no distress. INDWELLINGS: Trach, PEG, May. ANTIMICROBIALS: 1. Zosyn. 2. Vancomycin. MICROBIOLOGY: No new labs. Urinalysis on admission revealed trace leukocyte esterase, presence of white blood cell count, and few bacteria. DIAGNOSTICS: Chest x-ray showed patchy bilateral infiltrates. PHYSICAL EXAMINATION: GENERAL: Chronically ill-appearing, elderly man who is in no distress. HEENT: Head atraumatic, normocephalic. Sclerae anicteric. Buccal mucosa dry. NECK: Supple. Tracheostomy present. CHEST: Rise symmetrical. Breath sounds diminished to bases. HEART: S1, S2. ABDOMEN: Soft, bowel tones present. EXTREMITIES: Without cyanosis. ASSESSMENT: 1. Status post cardiopulmonary arrest, possibly secondary to mucus plugs. 2. Healthcare-associated pneumonia. 3. Arrhythmia. 4. Anemia. 6. Seizure disorder. 7. History of deep venous thrombosis with inferior vena cava filter placement. 8. History of endocarditis. PLAN: The patient remains hemodynamically stable. He is on broad spectrum antibiotics for pneumonia. Pending sputum and urine cultures. Continue present care. Follow cardiology and pulmonary recommendations. [facility] staff Problems: Consultation Date/Type/Reason Admit Date/Time May 17, 2016 at 01:40 Initial Consult Date 05/17/16 Type of Consultation: id Exam/Review of Systems Vital Signs Vitals Vital Signs Date Time Temp Pulse Resp B/P Pulse Ox O2 Delivery O2 Flow Rate FiO2 05/20/16 10:00 86 21 112/65 98 Mechanical Ventilator 05/20/16 08:00 30 05/20/16 08:00 99.7 Intake and Output 05/19/16 05/19/16 05/20/16 15:00 23:00 07:00 Intake Total 480 ml 280 ml 1327.5 ml Output Total 400 ml 150 ml 400 ml Balance 80 ml 130 ml 927.5 ml Results Result Diagram: 05/20/16 0455 05/20/16 0455 Results 24 hrs Laboratory Tests Test 05/19/16 12:24 05/19/16 19:19 05/20/16 00:48 05/20/16 04:55 Bedside Glucose 124 117 113 White Blood Count 6.0 Red Blood Count 2.62 L Hemoglobin 8.9 L Hematocrit 28.5 L Mean Corpuscular Volume 108.8 H Mean Corpuscular Hemoglobin 34.0 H Mean Corpuscular Hemoglobin Concent 31.2 L Red Cell Distribution Width 17.7 H Platelet Count 184 Mean Platelet Volume 10.2 Neutrophils % 68.6 Lymphocytes % 9.8 L Monocytes % 11.8 H Eosinophils % 8.4 H Basophils % 0.2 Nucleated Red Blood Cells % 0.0 Neutrophils # 4.2 Lymphocytes # 0.6 L Monocytes # 0.7 Eosinophils # 0.5 Basophils # 0.0 Nucleated Red Blood Cells # 0.0 Sodium Level 142 Potassium Level 3.6 Chloride Level 108 Carbon Dioxide Level 26 Anion Gap 12 Blood Urea Nitrogen 32 H Creatinine 1.13 Glucose Level 126 Calcium Level 8.4 Phosphorus Level 3.2 Magnesium Level 2.4 Total Bilirubin 0.2 Direct Bilirubin 0.00 Indirect Bilirubin 0.2 Aspartate Amino Transf (AST/SGOT) 77 H Alanine Aminotransferase (ALT/SGPT) 93 H Alkaline Phosphatase 190 H B-Type Natriuretic Peptide 2030 H Total Protein 7.3 Albumin 3.0 L Globulin 4.30 H Albumin/Globulin Ratio 0.69 Free Thyroxine 1.13 Random Vancomycin Level 18.2 Digoxin Level 1.1 Test 05/20/16 05:19 Bedside Glucose 126 Medications Medications Current Medications Acetaminophen (Tylenol Liquid) 650 mg Q6H PRN GTB PAIN AND OR ELEVATED TEMP; Start 05/17/16 at 02:00 Acetaminophen (Tylenol Supp) 650 mg Q6H PRN OK IF GTB ROUTE NOT EFFECTIVE; Start 05/17/16 at 02:00 Acetazolamide (Diamox) 500 mg DAILY IV Last administered on 05/20/16 08:55; Admin Dose 500 MG; Start 05/17/16 at 09:00 Bisacodyl (Dulcolax Supp) 10 mg DAILY PRN OK CONSTIPATION; Start 05/17/16 at 02 :00 Insulin Aspart (Novolog Insulin Pen) NOVOLOG *MILD* ALGORI... Q6 SC ; Start at 06:00 Digoxin (Digoxin) 0.125 mg DAILY@13 GTB Last administered on 05/19/16 16:27; Admin Dose 0.125 MG; Start 05/17/16 at 13:00 Famotidine (Pepcid Iv) 20 mg DAILY IV Last administered on 05/20/16 08:55; Admin Dose 20 MG; Start 05/17/16 at 09:00 Finasteride (Proscar) 5 mg DAILY GTB Last administered on 05/20/16 08:55; Admin Dose 5 MG; Start 05/17/16 at 09:00 Heparin Sodium (Porcine) (Heparin (5000 Units/0.5 ml)) 5,000 unit BID SC Last administered on 05/20/16 08:56; Admin Dose 5,000 UNIT; Start 05/17/16 at 09:00 Acetaminophen/ Hydrocodone Bitart (Lortab Liq) 10 ml Q6H PRN PO PAIN Last administered on 05/20/16 08:55; Admin Dose 10 ML; Start 05/17/16 at 02:00 Lactulose 20 gm 20 gm DAILY PO Last administered on 05/19/16 09:48; Admin Dose 20 GM; Start 05/17/16 at 09:00; Status Future Hold Levetiracetam/ Dextrose (Keppra Iv/D5W) 107.5 ml @ 430 mls/hr Q12 IVPB Last administered on 05/20/16 09:01; Admin Dose 430 MLS/HR; Start 05/17/16 at 09:00 Lidocaine (Lidoderm) 1 patch DAILY TD Last administered on 05/20/16 08:58; Admin Dose 1 PATCH; Start 05/17/16 at 09:00 Lidocaine (Xylocaine (Viscous)) 15 ml TID PO Last administered on 05/19/16 21: 30; Admin Dose 15 ML; Start 05/17/16 at 09:00 Metoprolol Tartrate (Lopressor) 25 mg BID GTB Last administered on 05/20/16 08 :55; Admin Dose 25 MG; Start 05/17/16 at 09:00 Ondansetron HCl (Zofran Inj) 4 mg Q8 PRN IV NAUSEA AND/OR VOMITING; Start 05/17 at 02:00 Polyethylene Glycol (Miralax) 17 gm DAILY PO Last administered on 05/19/16 09: 49; Admin Dose 17 GM; Start 05/17/16 at 09:00; Status Future Hold IV Flush (NS 10 ml) 10 ml Q8 IV Last administered on 05/20/16 05:20; Admin Dose 10 ML; Start 05/17/16 at 06:00 Senna (Senokot) 2 tab DAILY PO Last administered on 05/19/16 09:50; Admin Dose 2 TAB; Start 05/17/16 at 09:00; Status Future Hold Simethicone (Mylicon) 80 mg Q6H PRN PO DISTENSION/GAS/BLOATING; Start 05/17/16 at 02:00 Miscellaneous Information 1 ea NOTE XX ; Start 05/17/16 at 02:45 Glucose (Glutose) 15 gm Q15M PRN PO DECREASED GLUCOSE; Start 05/17/16 at 02:45 Glucose (Glutose) 22.5 gm Q15M PRN PO DECREASED GLUCOSE; Start 05/17/16 at 02: 45 Dextrose (D50w Syringe) 25 ml Q15M PRN IV DECREASED GLUCOSE; Start 05/17/16 at 02:45 Dextrose (D50w Syringe) 50 ml Q15M PRN IV DECREASED GLUCOSE; Start 05/17/16 at 02:45 Glucagon (Glucagen) 1 mg Q15M PRN IM DECREASED GLUCOSE; Start 05/17/16 at 02:45 Glucose 15 gm 15 gm Q15M PRN BUCCAL DECREASED GLUCOSE; Start 05/17/16 at 02:45 Piperacillin Sod/ Tazobactam Sod 100 ml @ 200 mls/hr Q8 IVPB Last administered on 05/20/16 05:20; Admin Dose 200 MLS/HR; Start 05/19/16 at 06:00 ; Stop 05/27/16 at 12:00 Vancomycin HCl/ Sodium Chloride (Vancocin/NS) 150 ml @ 75 mls/hr Q48H IVPB ; Start 05/20/16 at 20:00 ANNA SMITH NP May 20, 2016 12:22
[2016-05-20] MEDS: DIGOXIN 0.125 MG TAB GTB SCH (12:44)
[2016-05-20] MEDS ORDERED: IPRATROPIUM (HFA) 12.9 GM INHALER INH SCH (14:00)
[2016-05-20] MEDS ORDERED: ALBUTEROL HFA 8 GM INHALER INH SCH (14:00)
--- NOTE | 2016-05-20 15:14 | DS ---
DATE OF ADMISSION: 05/17/2016 DATE OF DISCHARGE: HOSPITAL COURSE: This is a 65-year-old male with a past medical history of depression, history of i ntracranial hemorrhage, history of chronic hydrocephalus ____ endocarditis, history of mitral valve prolapse, dysphagia, status post PEG, history of ____ who initially presented to [facility] 03/17/2016 after he became unresponsive. The patient was brought into the hospital, had a compli cated course requiring intubation. The patient also had a code arrest and had sepsis. He was subse quently transferred to [facility] where he suffered a respiratory code arrest, was tr ansferred to [facility] ICU for evaluation. While in the ICU, the patient has been clinica lly stable. He has been on no drips, hemodynamically has been stable. The patient had episodes of tachyarrhythmia which has been controlled with medical management. The patient during his ICU stay has also been on IV antibiotics for aspiration pneumonia, has been seen by infectious disease, Dr. Nickolas valdes; media monitor, ____ and director of extension work, Dr. Cline. The patient's mental status appears to have returned back to his previous baseline. Currently, at this point, the patient is stable and w ill be transferred back to [facility] to continue weaning. FINAL DIAGNOSES: 1. Status post code arrest, etiology was respiratory secondary to mucus plug. 2. Ventilator dependent respiratory failure. 3. Aspiration pneumonia. 4. Coronary artery disease. 5. Arrhythmia. 6. Dysphagia, status post percutaneous endoscopic gastrostomy. 7. Anemia. 8. Hyponatremia. 8. Hypokalemia. 9. Seizure disorder. 10. History of deep venous thrombosis. 11. Hypertension. 12. History of cerebrovascular accident. 13. Congestive heart failure. 14. History of endocarditis. FINAL MEDICATIONS: See reconciliation list. Please note I spent over 40 minutes of time preparing the patient's discharge. Dictated By: DOLLY OROSCO/JAYNA Conf#: [id number] DID#: [id number]
--- NOTE | 2016-05-20 16:35 | PN ---
DATE: 05/20/2016 CARDIOLOGY FOLLOWUP SUBJECTIVE: Discussed with the staff. Rhythm strip was reviewed. The patient remains in sinus rhy thm, sinus tachycardia. Remains nonverbal, status post tracheostomy, on the vent. MEDICATIONS: Reviewed. PHYSICAL EXAMINATION: VITAL SIGNS: Temperature 98.3, heart rate of 93, blood pressure of 105/63, respiratory rate of 24. HEENT: Normocephalic, atraumatic. NECK: Status post tracheostomy. CARDIOVASCULAR: Regular rate and rhythm, systolic murmur. PULMONARY: Mild rhonchi, diffuse. GASTROINTESTINAL: Soft, nontender. No rebound. EXTREMITIES: Trivial edema. NEUROLOGIC: Opens eyes, does not answer my questions. PSYCHIATRIC: Appears to be calm. . LABORATORY DATA: WBC of 6, hemoglobin 8.9, platelet 184. Sodium 142, potassium 3.6, BUN of 32, cre atinine 1.13, glucose of 126. ALT of 93. ASSESSMENT AND PLAN: 1. Status post cardiopulmonary arrest secondary to respiratory failure. 2. Respiratory failure, status post tracheostomy, ventilator-dependent. 3. Arrhythmia with paroxysmal supraventricular tachycardia, then sinus tachycardia, currently impro michelet. 4. Anemia. 5. History of mitral valve prolapse, endocarditis, status post long-term antibiotics. 6. History of deep venous thrombosis, status post IVC filter placement, with bleeding complication with anticoagulation previously. 7. History of hypertension, currently hypotensive. 8. History of hemorrhagic cerebrovascular accident. 9. Encephalopathy. 10. Congestive heart failure and fluid overload. RECOMMENDATIONS: We will continue with the current cardiac care including metoprolol and digoxin. Supportive care will be continued. Respiratory care will be continued. Closely monitor on telemetr y. Electrolytes will be corrected as needed. Dictated By: TAYLOR WATKINS MD AV/JAYNA Conf#: [id number] DID#: [id number] CC: DOLLY DONIS DO;*EndCC*
[2016-05-20] MEDS ORDERED: VANCOMYCIN 750 MG in SOD CHLORIDE 0.9% 150 ML IVPB SCH (20:00)
== END 2016-05-20 18:05 | DRG 208 ==
LOC: ICU 01:40
PROVIDERS: ADMIT Internal Medicine; ATTEND Internal Medicine
PROC: 5A1945Z Respiratory Ventilation, 24-96 Consecutive Hours (ICD-10-PCS; principal; 2016-05-17)
DX: J96.21 Acute and chronic respiratory failure with hypoxia (principal); J69.0 Pneumonitis due to inhalation of food and vomit; E87.0 Hyperosmolality and hypernatremia; G92 Toxic encephalopathy; G93.1 Anoxic brain damage, not elsewhere classified; Z99.11 Dependence on respirator [ventilator] status; Z93.0 Tracheostomy status; E44.0 Moderate protein-calorie malnutrition; E87.1 Hypo-osmolality and hyponatremia; I47.1 Supraventricular tachycardia; Z93.1 Gastrostomy status; Z68.20 Body mass index [BMI] 20.0-20.9, adult; D63.8 Anemia in other chronic diseases classified elsewhere; N40.1 Benign prostatic hyperplasia with lower urinary tract symptoms; R33.8 Other retention of urine; I10 Essential (primary) hypertension; I25.10 Atherosclerotic heart disease of native coronary artery without angina pectoris; R13.10 Dysphagia, unspecified; G40.909 Epilepsy, unspecified, not intractable, without status epilepticus; J96.22 Acute and chronic respiratory failure with hypercapnia; E87.6 Hypokalemia; I50.9 Heart failure, unspecified; E87.70 Fluid overload, unspecified; Z86.718 Personal history of other venous thrombosis and embolism
CPT/HCPCS: 36600; 70450; 71010; 80048; 80053; 80076; 80162; 80202; 81001; 81003; 82043; 82803; 82962; 83735; 83880; 84100; 84155; 84300; 84439; 84484; 85025; 86850; 86900; 86901; 86920; 87081; 93005; 94002; 94003; 94640; J1120; J0692; J1644; J1815; J1953; J2543; J3370; J7040; J7050; J7070

== ENCOUNTER 2017-01-27 16:56 | Inpatient (IN) | payer MEDICARE, MEDICAID ==
[~2017-01-27] VITALS: Ht 180.3 cm; Wt 68.0 kg
[2017-01-27 17:28] LABS: BASOPHILS % 0.5 % (0.0-2.0); EOSINOPHILS # 0.2 10^3/ul (0.0-0.5); EOSINOPHILS % 2.8 % (0.0-7.0); HEMATOCRIT 40.3 % (42.0-52.0); HEMOGLOBIN 12.9 g/dl (14.0-18.0); LYMPHOCYTES # 1.5 10^3/ul (0.8-2.9); LYMPHOCYTES % 18.7 % (15.0-51.0); MEAN CORPUSCULAR HEMOGLOBIN 29.5 pg (29.0-33.0); MEAN PLATELET VOLUME 9.7 fl (7.4-10.4); MONOCYTE # 0.8 10^3/ul (0.3-0.9); NEUTROPHIL # 5.2 10^3/ul (1.6-7.5); NEUTROPHILS % 66.8 % (39.0-77.0); PLATELET COUNT 240 10^3/UL (140-415); RED BLOOD COUNT 4.38 10^6/ul (4.70-6.10); RED CELL DISTRIBUTION WIDTH 14.8 % (11.5-14.5); WHITE BLOOD COUNT 7.8 10^3/ul (4.8-10.8)
[2017-01-27] MEDS ORDERED: ACETAMINOPHEN 325 MG TAB PO PRN (17:30)
[2017-01-27] MEDS ORDERED: ONDANSETRON 4 MG INJ IV PRN (17:30)
--- NOTE | 2017-01-27 17:34 | RADRPT ---
PROCEDURE: Portable chest x-ray. CLINICAL INDICATION: Sepsis. TECHNIQUE: Portable AP view of the chest. COMPARISON: Chest x-ray dated 06/11/2016, chest CT dated 05/24/2016. FINDINGS: There is a tracheostomy tube in place. A large portion of the stomach is again seen in the inferior left chest. No pulmonary edema or conolidation is identified. There is mild right basilar atelectasi s. The cardiac silhouette is magnified. No pleural effusion is seen. There is no pneumothorax. IMPRESSION: 1. No evidence of acute cardiopulmonary disease. 2. Large portion of the stomach in the inferior left chest. RPTAT: HTAR .Perry Cannon MD, Date Time Electronically viewed and signed by .Perry Cannon MD, on 01/27/2017 17:34 .R/
[2017-01-27 17:47] LABS: ADD UMIC NO; UR ASCORBIC ACID NEGATIVE (NEGATIVE); UR BILIRUBIN (Dip) NEGATIVE (NEGATIVE); UR BLOOD (Dip) NEGATIVE (NEGATIVE); UR CLARITY CLEAR (CLEAR); UR COLOR YELLOW (YELLOW); UR GLUCOSE (Dip) NEGATIVE (NEGATIVE); UR KETONES (Dip) NEGATIVE (NEGATIVE); UR LEUKOCYTE ESTERASE (Dip) NEGATIVE Leu/ul (NEGATIVE); UR NITRITE (Dip) NEGATIVE (NEGATIVE); UR SPECIFIC GRAVITY (Dip) 1.009 (1.003-1.030); UR TOTAL PROTEIN (Dip) NEGATIVE (NEGATIVE); UR UROBILINOGEN (Dip) NEGATIVE (NEGATIVE)
[2017-01-27] MEDS ORDERED: SOD CHLORIDE 0.9% 1,000 ML IV STA (17:50)
[2017-01-27 17:53] LABS: INR 0.97
[2017-01-27] MEDS ORDERED: KEP100S GTB (17:54)
[2017-01-27] MEDS ORDERED: LORA10TA3 GTB (17:54)
[2017-01-27] MEDS ORDERED: ENOX40DI14 SC (17:55)
[2017-01-27] MEDS ORDERED: PROP20TA4 GTB (17:56)
[2017-01-27] MEDS ORDERED: OMEP20CA16 GTB (17:56)
[2017-01-27] MEDS ORDERED: TRAM-40 GTB (17:57)
[2017-01-27] MEDS ORDERED: ACET325T33 PO (17:58)
[2017-01-27] MEDS ORDERED: FINA5TAB4 GTB (17:59)
[2017-01-27] MEDS ORDERED: DIGO250T GTB (18:00)
[2017-01-27] MEDS ORDERED: ACET250T22 GTB (18:02)
[2017-01-27 18:04] LABS: ALANINE AMINOTRANSFERASE 54 IU/L (13-69); ALBUMIN 2.9 g/dl (3.3-4.9); ALBUMIN/GLOBULIN RATIO 0.63; ALKALINE PHOSPHATASE 74 IU/L (42-121); ANION GAP 9 (8-16); ASPARTATE AMINO TRANSFERASE 40 IU/L (15-46); BILIRUBIN,INDIRECT 0.2 mg/dl (0-1.1); BILIRUBIN,TOTAL 0.2 mg/dl (0.2-1.3); BLOOD UREA NITROGEN 13 mg/dl (7-20); CALCIUM 9.7 mg/dl (8.4-10.2); CARBON DIOXIDE 32 mmol/L (21-31); CHLORIDE 104 mmol/L (97-110); CREATININE 0.57 mg/dl (0.61-1.24); GLUCOSE 138 mg/dl (70-220); POTASSIUM 3.7 mmol/L (3.5-5.1); SODIUM 141 mmol/L (135-144); TOTAL PROTEIN 7.5 g/dl (6.1-8.1)
[2017-01-27] MEDS ORDERED: CHLO PO (18:04)
[2017-01-27] MEDS ORDERED: ALBU2.5V3 NEB (18:05)
[2017-01-27] MEDS ORDERED: LACT1CAP4 GTB (18:08)
[2017-01-27 18:15] LABS: TROPONIN-I < 0.012 ng/ml (0.00-0.12)
--- NOTE | 2017-01-27 19:32 | ERD ---
ER Documentation Chief Complaint Chief Complaint tachicardia since 1200, denies cp or sob, trach to vent dependent HPI Patient is a 66-year-old male with diabetes, CHF, coronary artery disease, and tracheostomy after previous intracranial hemorrhage who presents with high heart rate. The patient was brought in by ambulance. He came from a shelter facility. He had an elevated heart rate between [address] Kraft sent him to the emergency department for further evaluation and admission. The patient denies cough or urinary symptoms. He has had no fevers. He has had no treatment as of yet. ROS All systems reviewed and are negative except as per history of present illness. Medications Home Meds Reported Medications Lactobacillus Acidophilus/Pect (Acidophilus-Pectin Capsule) 1 Each Capsule, 1 EACH GTB BID, CAP 01/27/17 Albuterol Sulfate* (Albuterol Sulfate* Neb) 0.083%-3 Ml Neb, 2.5 MG NEB Q3H Y for WHEEZING AND SOB, #30 VIAL AND Q6H WITH ATROVEN 0.5MG 01/27/17 Chlorhexidine Gluconate (Chlorhexidine Gluconate) 4,000 Ml Solution, 15 ML PO Q12H 01/27/17 Acetazolamide* (Acetazolamide*) 250 Mg Tablet, 500 MG GTB DAILY, #60 TAB 01/27/17 Digoxin* (Digitek*) 250 Mcg Tablet, 0.25 MG GTB DAILY, TAB 01/27/17 Finasteride* (Finasteride*) 5 Mg Tablet, 5 MG GTB DAILY, TAB 01/27/17 Acetaminophen* (Tylenol*) 325 Mg Tablet, 650 MG PO Q4H Y for TRACH TUBE CHANGE, TAB 01/27/17 Tramadol Hcl* (Ultram*) 50 Mg Tablet, 50 MG GTB BID Y for PAIN, TAB 01/27/17 Propranolol Hcl* (Propranolol Hcl*) 20 Mg Tablet, 20 MG GTB Q8H, TAB 01/27/17 Omeprazole* (Omeprazole*) 20 Mg Capsule., 20 MG GTB DAILY, #30 CAP 01/27/17 Enoxaparin Sodium* (Lovenox*) 40 Mg/0.4 Ml Syringe, 40 MG SC Q12, SYR 01/27/17 Loratadine* (Loratadine*) 10 Mg Tablet, 10 MG GTB DAILY, #30 TAB 01/27/17 Levetiracetam* (Keppra* (Ped)) 100 Mg/Ml Liq, 5 ML GTB Q12H for 30 Days, BOTTLE 01/27/17 Allergies Allergies: Coded Allergies: ketorolac (Unverified Allergy, Unknown, 01/27/17) PMhx/Soc History of Surgery: Yes Hx Neurological Disorder: Yes (chronic hydrocephalus) Hx Respiratory Disorders: Yes (Tracheostomy to ventilator, pneumonia, ) Hx Cardiac Disorders: Yes (bacterial endocarditis, mitral regurgitation, hypertension) Hx Psychiatric Problems: Yes (depression) Smoking Status: Unknown if ever smoked FmHx Family History: No diabetes Physical Exam Vitals Vital Signs Date Time Temp Pulse Resp B/P Pulse Ox O2 Delivery O2 Flow Rate FiO2 01/27/17 17:53 111 24 119/80 100 Mechanical Ventilator Trach Collar 01/27/17 17:06 114 12 100 35 01/27/17 17:00 99.3 118 20 126/101 100 Physical Exam Const: Chronically ill Head: Atraumatic Eyes: Normal Conjunctiva ENT: Trach in place Neck: Full range of motion..~ No meningismus. Resp: Clear to auscultation bilaterally Cardio: Tachycardic rate without murmur Abd: Soft, non tender, non distended. Normal bowel sounds Skin: Pale skin Back: No midline or flank tenderness Ext: No cyanosis, or edema Neur: Awake Result Diagram: 01/27/17 1710 01/27/17 1710 Results 24 hrs Laboratory Tests Test 01/27/17 17:10 01/27/17 17:30 White Blood Count 7.810^3/ul Red Blood Count 4.3810^6/ul Hemoglobin 12.9g/dl Hematocrit 40.3% Mean Corpuscular Volume 92.0fl Mean Corpuscular Hemoglobin 29.5pg Mean Corpuscular Hemoglobin Concent 32.0g/dl Red Cell Distribution Width 14.8% Platelet Count 89453^3/UL Mean Platelet Volume 9.7fl Neutrophils % 66.8% Lymphocytes % 18.7% Monocytes % 10.0% Eosinophils % 2.8% Basophils % 0.5% Nucleated Red Blood Cells % 0.0/100WBC Neutrophils # 5.210^3/ul Lymphocytes # 1.510^3/ul Monocytes # 0.810^3/ul Eosinophils # 0.210^3/ul Basophils # 0.010^3/ul Nucleated Red Blood Cells # 0.010^3/ul Prothrombin Time 13.0Sec Prothrombin Time Ratio 1.0 INR International Normalized Ratio 0.97 Activated Partial Thromboplast Time 31.0Sec Sodium Level 141mmol/L Potassium Level 3.7mmol/L Chloride Level 104mmol/L Carbon Dioxide Level 32mmol/L Anion Gap 9 Blood Urea Nitrogen 13mg/dl Creatinine 0.57mg/dl Glucose Level 138mg/dl Lactic Acid Level 1.1mmol/L Calcium Level 9.7mg/dl Total Bilirubin 0.2mg/dl Direct Bilirubin 0.00mg/dl Indirect Bilirubin 0.2mg/dl Aspartate Amino Transf (AST/SGOT) 40IU/L Alanine Aminotransferase (ALT/SGPT) 54IU/L Alkaline Phosphatase 74IU/L Troponin I < 0.012ng/ml Total Protein 7.5g/dl Albumin 2.9g/dl Globulin 4.60g/dl Albumin/Globulin Ratio 0.63 Urine Color YELLOW Urine Clarity CLEAR Urine pH 6.0 Urine Specific Ledger 1.009 Urine Ketones NEGATIVEmg/dL Urine Nitrite NEGATIVEmg/dL Urine Bilirubin NEGATIVEmg/dL Urine Urobilinogen NEGATIVEmg/dL Urine Leukocyte Esterase NEGATIVELeu/ul Urine Hemoglobin NEGATIVEmg/dL Urine Glucose NEGATIVEmg/dL Urine Total Protein NEGATIVEmg/dl Current Medications Medications (Trade) Dose Ordered Sig/Haley Route PRN Reason Start Time Stop Time Status Last Admin Dose Admin Ondansetron HCl (Zofran Inj) 4 mg ER BRIDGE PRN IV NAUSEA AND/OR VOMITING 01/27/17 17:30 01/28/17 17:29 Acetaminophen 650 mg 650 mg ER BRIDGE PRN PO MILD PAIN/FEVER 01/27/17 17:30 01/28/17 17:29 Sodium Chloride (NS) 1,000 ml @ 1,000 mls/hr Q1H STAT IV 01/27/17 17:50 01/27/17 18:49 DC 01/27/17 18:01 Procedures/MDM EKG read by me: Rate/Rhythm: Sinus tachycardia Intervals: Normal Impression: Sinus tachycardia without ischemia Chest x-ray shows no pneumonia per radiology. Patient is a 66-year-old male presents with tachycardia. EKG shows a sinus tachycardia. This may be from dehydration. The patient was given 1 L of normal saline for fluid resuscitation. The patient has no fever and there is no sign of serious bacterial infection at this time. Urinalysis was negative, chest x-ray was negative for pneumonia, and lactic acid was normal. The patient will be admitted to the care of Dr. Kraft as this is his patient. The patient will be admitted to a telemetry observation stay. The patient has anemia but does not require transfusion at this time. Departure Diagnosis: Primary Impression: Tachycardia Additional Impression: Anemia Anemia type: unspecified type Qualified Code: D64.9 - Anemia, unspecified type Condition: RYAN Love MD Jan 27, 2017 19:32
--- NOTE | 2017-01-27 20:28 | HP ---
DATE OF ADMISSION: 01/27/2017 CHIEF COMPLAINT: Tachycardia, arrhythmia. HISTORY OF PRESENT ILLNESS: This is a 66-year-old male with a past medical history of hypertension, history of intracranial hemorrhage, history of chronic hydrocephalus, history of bacterial endocard itis, history of mitral valve prolapse, history of dysphagia, status post PEG, history of pneumonia and sepsis, who initially presented to [facility] on February of 2016 after being found un responsive. The patient suffered code arrest during the hospital stay. The patient had a thoracic wall hematoma and was felt hemorrhagic shock. The patient unfortunately was in respiratory failure, was eventually trached and PEG'd and was transferred to [facility]. The patient was eventually discharged to a chcf facility. While at the skilled nurse facility, the libby ent had been clinically stable until this morning when he was noted to have tachycardia with heart r ates in the 120s, 130s. The patient was subsequently transferred to [facility] fo r evaluation. Upon arrival, the patient had laboratory data drawn, which showed a white count of 7. 8, hemoglobin 10.9, platelet count of 240. The patient had a chest x-ray that showed no acute cardi opulmonary disease. Heart rates, however, were noted to be 114, 115. The patient, in the emergency room, was given Tylenol and Zofran. There were no reports of hemoptysis, hematemesis, hematochezia . PAST MEDICAL HISTORY: As stated above, history of chronic respiratory failure, status post trach, h istory of dysphagia, history of code arrest, history of intracranial hemorrhage, history of depressi on, history of mitral valve prolapse, encephalopathy. PAST SURGICAL HISTORY: Status post trach, status post PEG, status post IVC filter, status post VATS . SOCIAL HISTORY: Resides at a SNF. FAMILY HISTORY: Noncontributory. ALLERGIES: NO KNOWN DRUG ALLERGIES. MEDICATIONS: The patient's medications have been reviewed and reconciled. REVIEW OF SYSTEMS: Unable to do adequate review of systems as patient is altered. Pertinent positi ves obtained by reviewing medical records, speaking to hospital staff, stated in HPI, otherwise nega tive. PHYSICAL EXAMINATION: VITALS: Blood pressure is 126/101, respirations 20, pulse 118, temperature 98.3. HEENT: Head is normocephalic. NECK: Supple. HEART: Tachycardic. LUNGS: Show diminished breath sounds at the base. ABDOMEN: Soft, nontender to palpation. No rebound or guarding. EXTREMITIES: Negative for clubbing, cyanosis. No edema. DERMATOLOGIC: No rashes. MUSCULOSKELETAL: No joint effusions. Patient does have noted wounds. NEUROLOGIC: Limited exam. LABORATORY DATA: Shows white count 7.8, hemoglobin 12.9, hematocrit 40.3, platelet count 240. Ches t x-ray shows no acute cardiopulmonary disease. The patient's urinalysis and BMP are pending. ASSESSMENT AND PLAN: This is a 66-year-old male who presents with: 1. Tachyarrhythmia. Underlying etiology is unclear. The plan is to check a chest x-ray. We will check a troponin. We will continue patient on AV pancho blockers, metoprolol and digoxin. We will c heck digoxin level. We will place a cardiology consult for evaluation. 2. History of coronary artery disease. Continue current medical management. 3. Chronic respiratory failure, vent-dependent respiratory failure. The patient's vent settings an d ABG are reviewed. Continue to monitor and place a pulmonary consult for evaluation. 4. Patient has a PEG. We will resume tube feeds. 5. Anemia of chronic disease. We will monitor hemoglobin and hematocrit levels. 6. Encephalopathy. Etiology is likely toxic metabolic. Continue to monitor. 7. Seizure disorder. Continue Keppra. 8. History of lower extremity DVT status post IVC filter. 9. Hypertension. Continue current blood pressure regimen. 10. History of hemorrhagic cerebrovascular accident. Continue medical management. 11. History of urinary retention and BPH. Continue medical management. 12. History of congestive heart failure. Continue to monitor. Patient appears euvolemic. Continu e current treatment plan. 13. History of VATS. 14. History of endocarditis. 15. History of sepsis. 16. Gastrointestinal and DVT prophylaxis. Continue PPI and sequential leg squeezers. Please note I spent up to 25 minutes [id number] time with the patient and patient's family discuss ing code status. The patient is FULL CODE. Dictated By: DOLLY OROSCO/JAYNA Conf#: [id number] DID#: [id number]
[2017-01-27 20:43] VITALS: TEMP 98.9
[2017-01-27 23:37] VITALS: RESP 9
[2017-01-27 23:54] VITALS: BP 125/59; RESP 19
[2017-01-28] VITALS (24 sets, daily range): BP systolic 101–124; BP diastolic 58–99; PULSE 90–119; RESP 11–20; Ht 180.3 cm; Wt 68.0 kg
[2017-01-28] MEDS ORDERED: ACETAMINOPHEN 650MG/20.3ML CUP GTB PRN (01:00)
[2017-01-28] MEDS ORDERED: ALBUTEROL 0.083% (NEB) 2.5 MG/3 ML AMP NEB PRN (01:00)
[2017-01-28] MEDS ORDERED: PENDING SANTYL ORDER FOR WOUND CARE XX PRN (01:00)
[2017-01-28] MEDS: PROPRANOLOL 20 MG TAB GTB SCH ×3 (03:24→17:25)
[2017-01-28] MEDS: LANSOPRAZOLE 30 MG CAP GTB SCH (05:23)
[2017-01-28] MEDS: L ACIDOPHIL/B LACTIS/B LONGUM CAPSULE NGT SCH ×2 (09:00→20:49)
[2017-01-28] MEDS: LORATADINE 10 MG TAB GTB SCH (09:00)
[2017-01-28] MEDS: ENOXAPARIN 40 MG/0.4 ML SYG SC SCH ×2 (09:00→20:51)
[2017-01-28] MEDS: ACETAZOLAMIDE 250 MG TAB GTB SCH (09:00)
[2017-01-28] MEDS: CHLORHEXIDINE GLUCONATE 15 ML UD CUP MT SCH ×2 (09:00→20:59)
[2017-01-28] MEDS: LEVETIRACETAM (100 MG/ML) 5ML CUP GTB SCH ×2 (09:00→20:48)
[2017-01-28] MEDS: FINASTERIDE 5 MG TAB GTB SCH (09:00)
[2017-01-28] MEDS: traMADol 50 MG TAB GTB PRN ×2 (10:43→20:50)
--- NOTE | 2017-01-28 10:45 | CONS ---
Date/Time of Note Date/Time of Note DATE: 01/28/17 TIME: 10:36 Assessment/Plan Assessment/Plan Chief Complaint/Hosp Course 1. Sinus tachycardia: multifactorial. 2. hypoxemic resp failure: s/p trach vent dep 3. hx endocarditis 4. hx mitral valve prolapse/ disease. 5. anemia. 6. hx DVT S/P IVC filter in place. Recommendations: Antibiotic management as per internal medicine. I will check the echocardiogram to evaluate for the valve disorder. Respiratory care and vent support will be continued. I will continue with the telemetry monitoring closely. Electrolytes to be corrected as needed. DVT prophylaxis to be continued. Thank you for his referral will continue to follow along with you. TAYLOR WATKINS MD [facility] Problems: Consultation Date/Type/Reason Admit Date/Time Jan 27, 2017 at 17:17 Date of Consultation: Jan 28, 2017 Type of Consultation: cardiology Reason for Consultation tachycardia. Referring Provider: DOLLY KRAFT DO Hx of Present Illness cardiology consultation note: CC; Tachycardia HPI: HISTORY OF PRESENT ILLNESS: This is a 66-year-old male with a past medical history of hypertension, history of intracranial hemorrhage, history of chronic hydrocephalus, history of bacterial endocarditis, history of mitral valve prolapse, history of dysphagia, status post PEG, history of pneumonia and sepsis who was admitted from SNF for tachycardia. pt is not able to provide reliable history. his old records were reviewed. he denies any cp or pressure or palpitations. he is on vent and s/p trach but denies sob to me,. d/w staff and Dr Kraft. The patient was eventually discharged to a long term facility. While at the skilled nurse facility, the patient had been clinically stable until this morning when he was noted to have tachycardia with heart rates in the 120s , 130s. The patient was subsequently transferred to [facility] for evaluation. Upon arrival, the patient had laboratory data drawn, which showed a white count of 7.8, hemoglobin 10.9, platelet count of 240. The patient had a chest x-ray that showed no acute cardiopulmonary disease. Heart rates, however, were noted to be 114, 115. The patient, in the emergency room, was given Tylenol and Zofran. There were no reports of hemoptysis, hematemesis , hematochezia. PAST MEDICAL HISTORY: pt initially presented to [facility] on February of 2016 after being found unresponsive. The patient suffered code arrest during the hospital stay. The patient had a thoracic wall hematoma and was felt hemorrhagic shock. The patient unfortunately was in respiratory failure, was eventually trached and PEG 'd and was transferred to [facility]. he has a history of chronic respiratory failure, status post trach, history of dysphagia, history of code arrest as above. history of intracranial hemorrhage, history of depression, history of mitral valve prolapse and endocarditis. encephalopathy. DVT S/P IVC filter. PAST SURGICAL HISTORY: Status post trach, status post PEG, status post IVC filter, status post VATS. SOCIAL HISTORY: Resides at a SNF. Does not smoke at present time FAMILY HISTORY: No report of any early CAD ALLERGIES: NO KNOWN DRUG ALLERGIES. MEDICATIONS: The patient's medications have been reviewed ROS: as above mentioned only Social History Smoking Status: Unknown if ever smoked Exam/Review of Systems Vital Signs Vitals Vital Signs Date Time Temp Pulse Resp B/P Pulse Ox O2 Delivery O2 Flow Rate FiO2 01/28/17 08:11 91 01/28/17 07:58 98.2 15 101/58 94 01/28/17 07:38 35 01/27/17 21:30 Mechanical Ventilator Intake and Output 01/27/17 01/27/17 01/28/17 15:00 23:00 07:00 Intake Total 400 ml Output Total 300 ml Balance 100 ml Exam General: s/p trach on vent. HEENT: NC/AT. pupils are equal. round. NECK:s/p trach. no stridor. CV: RRR. systolic murmur; no gallop or rubs. PULM: no wheezing . mild rhonchi. GI: SOFT, NT, ND, no rebound or guarding Extremity: trace B/L LE edema. no clubbing. neuro: awake and alert, OX1. Psych: easily agitated rectal: deferred ECG reviewed: sinus tachy with RBBB CXR REVIEWED: 1. No evidence of acute cardiopulmonary disease. 2. Large portion of the stomach in the inferior left chest. Results Result Diagram: 01/27/17 1710 01/27/17 1710 Results 24 hrs Laboratory Tests Test 01/27/17 17:10 01/27/17 17:30 White Blood Count 7.8 Red Blood Count 4.38 #L Hemoglobin 12.9 #L Hematocrit 40.3 #L Mean Corpuscular Volume 92.0 Mean Corpuscular Hemoglobin 29.5 Mean Corpuscular Hemoglobin Concent 32.0 Red Cell Distribution Width 14.8 H Platelet Count 240 Mean Platelet Volume 9.7 Neutrophils % 66.8 Lymphocytes % 18.7 Monocytes % 10.0 Eosinophils % 2.8 Basophils % 0.5 Nucleated Red Blood Cells % 0.0 Neutrophils # 5.2 Lymphocytes # 1.5 Monocytes # 0.8 Eosinophils # 0.2 Basophils # 0.0 Nucleated Red Blood Cells # 0.0 Prothrombin Time 13.0 Prothrombin Time Ratio 1.0 INR International Normalized Ratio 0.97 Activated Partial Thromboplast Time 31.0 Sodium Level 141 Potassium Level 3.7 Chloride Level 104 Carbon Dioxide Level 32 H Anion Gap 9 Blood Urea Nitrogen 13 Creatinine 0.57 L Glucose Level 138 Lactic Acid Level 1.1 Calcium Level 9.7 Total Bilirubin 0.2 Direct Bilirubin 0.00 Indirect Bilirubin 0.2 Aspartate Amino Transf (AST/SGOT) 40 Alanine Aminotransferase (ALT/SGPT) 54 Alkaline Phosphatase 74 Troponin I < 0.012 Total Protein 7.5 Albumin 2.9 L Globulin 4.60 H Albumin/Globulin Ratio 0.63 Urine Color YELLOW Urine Clarity CLEAR Urine pH 6.0 Urine Specific [place] 1.009 Urine Ketones NEGATIVE Urine Nitrite NEGATIVE Urine Bilirubin NEGATIVE Urine Urobilinogen NEGATIVE Urine Leukocyte Esterase NEGATIVE Urine Hemoglobin NEGATIVE Urine Glucose NEGATIVE Urine Total Protein NEGATIVE Medications Medications Current Medications Acetaminophen (Tylenol Liquid) 650 mg Q4H PRN GTB TRACH TUBE CHANGE; Start 01/28/17 at 01:00 Acetazolamide (Diamox) 500 mg DAILY GTB ; Start 01/28/17 at 09:00 Digoxin (Digoxin) 0.25 mg DAILY@13 GTB ; Start 01/28/17 at 13:00 Enoxaparin Sodium (Lovenox) 40 mg Q12 SC ; Start 01/28/17 at 09:00 Finasteride (Proscar) 5 mg DAILY GTB ; Start 01/28/17 at 09:00 Levetiracetam (Keppra Liquid) 500 mg Q12 GTB ; Start 01/28/17 at 09:00 Loratadine (Claritin) 10 mg DAILY GTB ; Start 01/28/17 at 09:00 Propranolol HCl (Inderal) 20 mg Q8H GTB Last administered on 01/28/17t 03:24; Admin Dose 20 MG; Start 01/28/17 at 01:00 Tramadol HCl (Ultram) 50 mg BID PRN GTB PAIN; Start 01/28/17 at 01:00 Chlorhexidine Gluconate (Peridex) 15 ml Q12 MT ; Start 01/28/17 at 09:00 Lactobacillus Acidophilus (Florajen3 Capsule) 1 each BID NGT ; Start 01/28/17 at 09:00 Lansoprazole (Prevacid) 30 mg DAILY@06 GTB Last administered on 01/28/17t 05:23 ; Admin Dose 30 MG; Start 01/28/17 at 06:00 Miscellaneous Information (Pending [facility] Order For Wound Care) This patient briggs... PRN PRN XX WOUND CARE; Start 01/28/17 at 01:00 TAYLOR WATKINS MD Jan 28, 2017 10:45
--- NOTE | 2017-01-28 11:12 | PN ---
DATE: 01/28/2017 SUBJECTIVE: The patient overnight was stable. No acute events overnight. No hemoptysis, hematemes is or hematochezia. OBJECTIVE: VITAL SIGNS: Blood pressure is currently 101/58, respirations 15, pulse 109, temperature 98.2. HEENT: Head is normocephalic. NECK: Supple. HEART: Regular rate. LUNGS: Show diminished breath sounds at base. ABDOMEN: Soft, nontender to palpation without rebound or guarding. EXTREMITIES: Negative for clubbing, cyanosis. No edema. DERMATOLOGIC: No rashes. MUSCULOSKELETAL: No joint effusions. NEUROLOGIC: No change in exam. MEDICATIONS: The patient's medications have been reviewed. DATA: Chest x-ray on 01/27/2017, was reviewed. LABORATORY DATA: From 01/28/2017, pending. ASSESSMENT AND PLAN: 1. Tachyarrhythmia. The patient's EKG shows sinus tachycardia. At this point, we will continue cu rrent treatment plan. Follow up with cardiology. Adjust antiarrhythmic medications. 2. History of coronary artery disease, currently stable. Continue medical management. 3. Ventilator dependent respiratory failure. The patient's vent settings and ABGs reviewed. Isaura nue to monitor. Follow up with pulmonary. 4. Dysphagia. Status post percutaneous endoscopic gastrostomy. Continue tube feeding. 5. Anemia of chronic disease. Monitor hemoglobin and hematocrit levels. 6. Seizure disorder. Continue Keppra. 8. History of deep venous thrombosis, status post inferior vena cava filter. 9. Hypertension. Continue current blood pressure regimen. 10. History of hemorrhagic cerebrovascular accident. 11. History of decubitus wound. Continue wound care. 12. History of congestive heart failure. The patient appears euvolemic. Continue medical manageme nt. 13. History of urinary retention. 14. Gastrointestinal and deep venous thrombosis prophylaxis. Continue proton pump inhibitor and Lo venox. Dictated By: DOLLY DONIS DO NR/NTS Conf#: [id number] DID#: [id number]
[2017-01-28] MEDS: DIGOXIN 0.25 MG TAB GTB SCH (13:00)
--- NOTE | 2017-01-28 19:31 | CONS ---
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 There obviously was a cardiac arrest in the past and because of the respiratory failure, he had a tracheostomy and also had a PEG done because of the dysphagia. He was sent into emergency room because of the tachycardia, and he has been evaluated and managed properly. Orthopedic Surgery was consulted because of the severe flexion contracture involving the middle finger and ring finger and little finger of right hand, causing pressure sores over the right palm because of the digging nails of these involved fingers. He has fair range of motion of the right thumb and right index finger. His left hand had a similar problem and was treated with the flexor tendon release in the past. PHYSICAL EXAMINATION: GENERAL APPEARANCE: My examination revealed a 66-year-old male on respirator through tracheostomy. EXTREMITIES: He indeed has a flexion contracture of right middle finger and right ring finger and right little finger with signs of soft tissue damages over the palm because of the severe and forceful finger contractures. According to the legal guardian occupational therapy has been tried. However, because of the severe flexion power it was also causing pressure problems on the fingers. 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 RECOMMENDATIONS FOR MANAGEMENT: Since nonsurgical management by occupational therapy was not successful, possible surgical intervention such as flexor tendon lengthening or flexor tendon release have to be considered and for these procedures hand surgery should be consulted. I will try to arrange a hand surgeon who can visit the patient in the hospital, however, if this is not possible, then he may have to go to a hand surgeon as an outpatient for further evaluation and care. Dictated By: In Evelyne Dunne MD /evan/otoniel /Document#: [id number]
--- NOTE | 2017-01-28 19:36 | RADRPT ---
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 Physician: IGLESIA CLINE Quality: Technically Difficult Study Procedures: Transthoracic echocardiogram examination. Indications: Syncope. 2D/M Mode Doppler Measurement Value Normal Range Measurement Value Normal Range LVIDd 2D 4.9 3.5 - 5.6 cm LVIDs 2D 2.5 2.1 - 4.1 cm LVPWd 2D 1.2 0.6 - 1.1 cm IVSd 2D 1.0 0.6 - 1.1 cm AoR Diam 2D 3.6 2.0 - 3.7 cm EDV 2D 113.6 cm3 ESV 2D 16.5 cm3 Findings Left Ventricle: Normal left ventricular cavity size. Normal left ventricular systolic function. Mild concentric left ventricular hypertrophy. The left ventricular ejection fraction is visually estimated at 65 %. Conclusions 1.PROBABLY Normal left ventricular cavity size. Normal left ventricular systolic function. Mild concentric left ventricular hypertrophy. The left ventricular ejection fraction is visually estimated at 65 %. 2.Extremely poor quality study. 3.structure of the valves could not be seen. 4.pt was uncoperative during the study. Electronically Signed By: Igleisa Cline 28-Jan-2017 19:35:27 -0800 Patient Name: SHAUNNA REGALADO Study Date: 28-Jan-[id number]
--- NOTE | 2017-01-28 21:25 | CONS ---
DATE OF ADMISSION: 01/28/2017 DATE OF CONSULTATION: 01/28/2017 INFECTIOUS DISEASE CONSULTATION REASON FOR CONSULTATION: Antibiotic management. HISTORY OF PRESENT ILLNESS: Sarath Barr is a 66-year-old male who comes in with tachycardia and arr hythmia and is being seen for antibiotic management. His past problems include: 1. Hypertension. 2. History of intracranial hemorrhage. 3. Chronic hydrocephalus. 4. History of bacterial endocarditis. 5. History of mitral valve prolapse. 6. Dysphagia, status post G-tube. 7. History of pneumonia and sepsis. The patient presented to [facility] in February 2016, found unresponsive, had a code arrest, had a thoracic wall hematoma and hemorrhagic shock. He was in respiratory failure, eventually trached, h ad a G-tube placed, was transferred to [place]. He was discharged to a halfway facility and was stable until the when he became tachycardic, was transferred to [facility]. His wh ite count was 7.8, hemoglobin was 10.9, platelets 240,000. The patient had a chest x-ray that showe d no acute cardiopulmonary disease. Heart rate was 115. His past problems include chronic respirat ory failure, status post tracheostomy. He also had a history of depression, encephalopathy, status post IVC filter, status post VATS, status post G-tube placement, status post trach, currently reside s in [place] [facility] [place]. ALLERGIES: NONE TO PENICILLIN, SULFA OR FOODS. MEDICATIONS: Per chart. REVIEW OF SYSTEMS: As per HPI. PHYSICAL EXAMINATION: GENERAL: The patient is a chronically ill-appearing male who is awake, nonverbal. VITAL SIGNS: Stable. He is afebrile. SKIN: Without generalized rash. HEENT: Within normal limits. NECK: Tracheostomy in place. Neck is movable. LYMPH NODES: None palpable. CHEST: Decreased breath sounds at the bases. HEART: Without murmur or gallop. ABDOMEN: Soft, nontender without organosplenomegaly or masses. G-tube in place. EXTREMITIES: Without cyanosis, clubbing or edema. RECTAL AND GENITAL: Deferred. NEUROLOGIC: The patient essentially is encephalopathic, able to move all his extremities, but he is encephalopathic. IMPRESSION AND PLAN: The patient comes in now with tachycardia, etiology is to be determined. Work up, urine culture so far is negative, a chest x-ray shows no evidence of acute cardiopulmonary disea se, large portion of the stomach in the inferior left chest. White count as noted was 7.8. Urine i s negative. The patient currently is off antibiotic therapy. No obvious infection. Blood cultures , urine and stool cultures, as well as MRSA screen are pending. We will continue him on current the rapy. I will dictate my findings to Dr. Kraft. Dictated By: THANG GALLEGO MD, JD/JAYNA Conf#: [id number] DID#: [id number] CC: DOLLY KRAFT DO;*EndCC*
[2017-01-29] VITALS (22 sets, daily range): BP systolic 96–119; BP diastolic 56–83; PULSE 70–117; RESP 10–24
[2017-01-29] MEDS: PROPRANOLOL 20 MG TAB GTB SCH ×3 (01:23→17:00)
[2017-01-29] MEDS: LANSOPRAZOLE 30 MG CAP GTB SCH (05:28)
[2017-01-29] MEDS: ENOXAPARIN 40 MG/0.4 ML SYG SC SCH ×2 (09:00→20:39)
[2017-01-29] MEDS: LEVETIRACETAM (100 MG/ML) 5ML CUP GTB SCH ×2 (09:00→20:37)
[2017-01-29] MEDS: L ACIDOPHIL/B LACTIS/B LONGUM CAPSULE NGT SCH ×2 (09:00→20:38)
[2017-01-29] MEDS: CHLORHEXIDINE GLUCONATE 15 ML UD CUP MT SCH ×2 (09:00→20:38)
[2017-01-29] MEDS: FINASTERIDE 5 MG TAB GTB SCH (09:00)
[2017-01-29] MEDS: LORATADINE 10 MG TAB GTB SCH (09:00)
[2017-01-29] MEDS: ACETAZOLAMIDE 250 MG TAB GTB SCH (09:00)
--- NOTE | 2017-01-29 11:17 | PN ---
DATE: 01/29/2017 SUBJECTIVE: The patient is stable. No events overnight. No fevers, chills, nausea, vomiting. The patient was evaluated by orthopedist, Dr. Dunne yesterday. OBJECTIVE: VITAL SIGNS: Blood pressure is 112/59, respirations 16, pulse 81, temperature 97.9. HEENT: Head is normocephalic. NECK: Supple. HEART: Regular rate. LUNGS: Show diminished breath sounds at the base. ABDOMEN: Soft, nontender to palpation. No rebound or guarding. EXTREMITIES: Negative for clubbing, cyanosis, no edema. DERMATOLOGIC: No rashes. MUSCULOSKELETAL: No joint effusions. NEUROLOGIC: No change in exam. LABORATORY DATA: Has been reviewed. Laboratory data from this morning is pending. ASSESSMENT AND PLAN: 1. Tachyarrhythmia. The patient is currently in sinus rhythm. Continue current treatment plan. F ollow up with cardiology. 2. Coronary artery disease, currently stable. Continue medical management. 3. Ventilator-dependent respiratory failure. Ventilator settings and ABG is reviewed. Continue to monitor. 4. Dysphagia, status post percutaneous endoscopic gastrostomy. Continue tube feeding. 5. Anemia of chronic disease. Monitor hemoglobin and hematocrit levels. 6. Bilateral hand contractures. The patient was seen by orthopedist, Dr. Dunne, who will attempt to have an orthopedic hand specialist to evaluate the patient either inpatient or outpatient setting. 7. Seizure disorder. Continue Keppra. 8. History of deep venous thrombosis, status post inferior vena cava filter. 9. Hypertension. Continue current blood pressure regimen. 10. History of cerebrovascular accident. 11. History of decubitus wound. Continue wound care. 12. Congestive heart failure. The patient is euvolemic. Continue medical management. 13. History of urinary retention. 14. Gastrointestinal and deep venous thrombosis prophylaxis. Dictated By: DOLLY OROSCO/JAYNA Conf#: [id number] DID#: [id number]
--- NOTE | 2017-01-29 13:40 | PN ---
DATE: 01/29/2017 SUBJECTIVE: No acute changes. The patient is awake, looks comfortable, no fevers overnight. No la bs this morning. MICROBIOLOGY: Blood and urine cultures negative. INDWELLINGS: Trach, PEG, May. DIAGNOSTICS: Chest x-ray on admission revealed no evidence of acute cardiopulmonary disease. PHYSICAL EXAMINATION: GENERAL: This is a chronically ill-appearing, debilitated, elderly man who is in no distress. HEENT: Head atraumatic, normocephalic. Sclerae anicteric. Buccal mucosa dry. NECK: Supple. CHEST: Rise symmetrical. Breath sounds diminished to bases. HEART: S1, S2. ABDOMEN: Soft, bowel tones present. EXTREMITIES: Contractures. ASSESSMENT: 1. Tachyarrhythmia. 2. Chronic respiratory failure. 3. Dysphagia. 4. History of deep venous thrombosis, status post inferior vena cava filter placement. 5. History of cerebrovascular accident. PLAN: Remains stable off antibiotics. Cultures negative. Continue present care. Dictated By: ANNA SMITH APPLICATIONS INSTRUCTOR for THANG MEEKS/JAYNA Conf#: [id number] DID#: [id number] CC: DOLLY DONIS DO;*EndCC*
[2017-01-29] MEDS: DIGOXIN 0.25 MG TAB GTB SCH (13:41)
--- NOTE | 2017-01-29 20:19 | CONS ---
Date/Time of Note Date/Time of Note DATE: 01/29/17 TIME: 20:17 Consult Date/Type/Reason Admit Date/Time Jan 28, 2017 at 16:16 Initial Consult Date 01/28/17 Type of Consultation: cardiology Ordering Provider: DOLLY DONIS DO Subjective Cardiology follow-up progress note: Subjective: Rhythm strip was reviewed and discussed with staff. Patient remained in sinus rhythm. Discussed with Patient is status post tracheostomy on the vent. No chest pain or pressure. O: General: s/p trach on vent. HEENT: NC/AT. pupils are equal. round. NECK:s/p trach. no stridor. CV: RRR. systolic murmur; no gallop or rubs. PULM: no wheezing . mild rhonchi. GI: SOFT, NT, ND, no rebound or guarding Extremity: trace B/L LE edema. no clubbing. neuro: awake and alert, OX1. Psych: easily agitated rectal: deferred ECG reviewed: sinus tachy with RBBB CXR REVIEWED: 1. No evidence of acute cardiopulmonary disease. 2. Large portion of the stomach in the inferior left chest. Objective Vital Signs Date Time Temp Pulse Resp B/P Pulse Ox O2 Delivery O2 Flow Rate FiO2 01/29/17 20:00 99.1 101 16 118/74 98 01/29/17 17:05 45 01/27/17 21:30 Mechanical Ventilator Intake and Output 01/28/17 01/28/17 01/29/17 15:00 23:00 07:00 Intake Total 750 ml 700 ml Output Total 600 ml 400 ml Balance 150 ml 300 ml Results/Medications Result Diagram: 01/27/17 1710 01/27/17 1710 Medications Current Medications Acetaminophen (Tylenol Liquid) 650 mg Q4H PRN GTB TRACH TUBE CHANGE; Start 01/28/17 at 01:00 Acetazolamide (Diamox) 500 mg DAILY GTB ; Start 01/28/17 at 09:00 Digoxin (Digoxin) 0.25 mg DAILY@13 GTB Last administered on 01/29/17t 13:41; Admin Dose 0.25 MG; Start 01/28/17 at 13:00 Enoxaparin Sodium (Lovenox) 40 mg Q12 SC ; Start 01/28/17 at 09:00 Finasteride (Proscar) 5 mg DAILY GTB ; Start 01/28/17 at 09:00 Levetiracetam (Keppra Liquid) 500 mg Q12 GTB Last administered on 01/28/17 20: 48; Admin Dose 500 MG; Start 01/28/17 at 09:00 Loratadine (Claritin) 10 mg DAILY GTB ; Start 01/28/17 at 09:00 Propranolol HCl (Inderal) 20 mg Q8H GTB Last administered on 01/29/17 01:23; Admin Dose 20 MG; Start 01/28/17 at 01:00 Tramadol HCl (Ultram) 50 mg BID PRN GTB PAIN Last administered on 01/28/17 20: 50; Admin Dose 50 MG; Start 01/28/17 at 01:00 Chlorhexidine Gluconate (Peridex) 15 ml Q12 MT ; Start 01/28/17 at 09:00 Lactobacillus Acidophilus (Florajen3 Capsule) 1 each BID NGT Last administered on 01/28/17 20:49; Admin Dose 1 EACH; Start 01/28/17 at 09:00 Lansoprazole (Prevacid) 30 mg DAILY@06 GTB Last administered on 01/29/17 05:28 ; Admin Dose 30 MG; Start 01/28/17 at 06:00 Miscellaneous Information (Pending [facility] Order For Wound Care) This patient briggs... PRN PRN XX WOUND CARE; Start 01/28/17 at 01:00 Assessment/Plan Chief Complaint/Hosp Course 1. Sinus tachycardia: multifactorial. Improving now 2. hypoxemic resp failure: s/p trach vent dep 3. hx endocarditis 4. hx mitral valve prolapse/ disease. 5. anemia. 6. hx DVT S/P IVC filter in place. Recommendations: Antibiotic management as per internal medicine. Echocardiogram was very suboptimal due to patient's poor cooperation Respiratory care and vent support will be continued. I will continue with the telemetry monitoring closely. Electrolytes to be corrected as needed. DVT prophylaxis to be continued. Thank you for his referral will continue to follow along with you. TAYLOR WATKINS MD [facility] Problems: TAYLOR WATKINS MD Jan 29, 2017 20:19
--- NOTE | 2017-01-29 20:42 | CONS ---
DATE OF ADMISSION: 01/28/2017 DATE OF CONSULTATION: 01/29/2017 HISTORY OF PRESENT ILLNESS: The patient is a 66-year-old male from a fdc, complicated medical history of hypertension, stroke, paraplegia, dementia , hydrocephalus, sepsis, pneumonia, tachycardia. I believe his present admission diagnosis was tachycardia. Dr. Tapan Dunne was asked to see him as orthopedic surgeon and requested a hand surgical consultation for the contracted right hand long, ring and little fingers where the nail is growing through the skin into the palm. His long, ring and little fingers are of no function to him. They are contracted and stuck in his hand. Hygiene is a bit of a challenge. PAST MEDICAL HISTORY: Above. Besides the above, he has previously at [facility] had release of the contracture at the opposite left hand several years ago and that makes him easier to care for. I had a phone call today from the patient's guardian seeking help for this man because the fingers are hard to care for. They are a hygiene problem. It is impossible to prevent the nails from growing right through the skin of the palm and the hand is nonfunctional and this is uncomfortable. PHYSICAL EXAMINATION: On examination, these 3 fingers, long, ring and little, are stuck in the palm and when you try and look at the fingertips, it hurts him. It causes him pain. He gave me a dirty look like "what are you doing to me." I asked him if his hands bother him, and he said they really did not, and I said "do you want them to be released," and he said he really did not, but how much he understands is . If it is desired to have this contracture released, I can do that for him on an elective basis, not during the course of the present admission. I would recommend that he be referred to my office by ground transportation. We could review his needs, submit request for surgical treatment and schedule him for that electively. If that kind of care is desired by his guardian and his involved people, what we would do is divide the flexor tendons at multiple levels, release the contracture of the joint and just bring the fingers into full extension straight, flaccid, with no elective voluntary closure of those fingers. It is a trade, fingers that are useless in extension instead of fingers that are useless in contracture. If nothing else, fingers that are useless in extension are easy to care for and do not cause erosions in the palm. If that is what is desired, it can be arranged through my office electively. I would see him in the office, write it up and create a record in my office and we would schedule him electively here at the [facility]– [place]. Thank you for asking me to see the patient in consultation. Dictated By: MONIKA PHILLIPS/JAYNA Conf#: [id number] DID#: [id number] CC: DOLLY DONIS DO;*EndCC* MTDD
[2017-01-30] VITALS (24 sets, daily range): BP systolic 93–131; BP diastolic 55–96; PULSE 81–107; RESP 12–31
[2017-01-30] MEDS: PROPRANOLOL 20 MG TAB GTB SCH ×3 (01:39→18:47)
[2017-01-30] MEDS: LANSOPRAZOLE 30 MG CAP GTB SCH (06:00)
[2017-01-30 07:30] LABS: BASOPHILS % 0.2 % (0.0-2.0); EOSINOPHILS # 0.3 10^3/ul (0.0-0.5); EOSINOPHILS % 2.3 % (0.0-7.0); HEMATOCRIT 39.3 % (42.0-52.0); HEMOGLOBIN 12.8 g/dl (14.0-18.0); LYMPHOCYTES # 1.1 10^3/ul (0.8-2.9); MEAN CORPUSCULAR HEMOGLOBIN 29.8 pg (29.0-33.0); MEAN CORPUSCULAR HGB CONC 32.6 g/dl (32.0-37.0); MEAN CORPUSCULAR VOLUME 91.4 fl (82.0-101.0); MEAN PLATELET VOLUME 9.9 fl (7.4-10.4); MONOCYTE # 0.9 10^3/ul (0.3-0.9); MONOCYTES % 8.1 % (0.0-11.0); NEUTROPHIL # 8.4 10^3/ul (1.6-7.5); NEUTROPHILS % 78.7 % (39.0-77.0); PLATELET COUNT 227 10^3/UL (140-415); RED CELL DISTRIBUTION WIDTH 14.7 % (11.5-14.5); WHITE BLOOD COUNT 10.7 10^3/ul (4.8-10.8)
[2017-01-30 07:54] LABS: CALCIUM 9.2 mg/dl (8.4-10.2); CREATININE 0.53 mg/dl (0.61-1.24); PHOSPHORUS 2.3 mg/dl (2.5-4.9); POTASSIUM 3.5 mmol/L (3.5-5.1)
--- NOTE | 2017-01-30 08:45 | CONS ---
Date/Time of Note Date/Time of Note DATE: 01/30/17 TIME: 08:43 Consult Date/Type/Reason Admit Date/Time Jan 28, 2017 at 16:16 Initial Consult Date 01/28/17 Type of Consultation: cardiology Ordering Provider: DOLLY DONIS DO Subjective Cardiology follow-up progress note: Subjective: Rhythm strip was reviewed and discussed with staff. Patient remained in sinus rhythm. Discussed with Patient is status post tracheostomy on the vent. No chest pain or pressure. O: General: s/p trach on vent. HEENT: NC/AT. pupils are equal. round. NECK:s/p trach. no stridor. CV: RRR. systolic murmur; no gallop or rubs. PULM: no wheezing . mild rhonchi. GI: SOFT, NT, ND, no rebound or guarding Extremity: trace B/L LE edema. no clubbing. neuro: awake and alert, OX1. Psych: easily agitated rectal: deferred ECG reviewed: sinus tachy with RBBB CXR REVIEWED: 1. No evidence of acute cardiopulmonary disease. 2. Large portion of the stomach in the inferior left chest. Objective Vital Signs Date Time Temp Pulse Resp B/P Pulse Ox O2 Delivery O2 Flow Rate FiO2 01/30/17 08:30 91 01/30/17 07:22 98.5 20 112/67 99 01/30/17 07:15 45 01/27/17 21:30 Mechanical Ventilator Intake and Output 01/29/17 01/29/17 01/30/17 15:00 23:00 07:00 Intake Total 1100 ml 800 ml Output Total 1300 ml 500 ml Balance -200 ml 300 ml Results/Medications Result Diagram: 01/30/1731 01/30/17 0631 Results 24 hrs Laboratory Tests Test 01/30/17 06:31 White Blood Count 10.7 # Red Blood Count 4.30 L Hemoglobin 12.8 L Hematocrit 39.3 L Mean Corpuscular Volume 91.4 Mean Corpuscular Hemoglobin 29.8 Mean Corpuscular Hemoglobin Concent 32.6 Red Cell Distribution Width 14.7 H Platelet Count 227 Mean Platelet Volume 9.9 Neutrophils % 78.7 H Lymphocytes % 10.0 L Monocytes % 8.1 Eosinophils % 2.3 Basophils % 0.2 Nucleated Red Blood Cells % 0.0 Neutrophils # 8.4 H Lymphocytes # 1.1 Monocytes # 0.9 Eosinophils # 0.3 Basophils # 0.0 Nucleated Red Blood Cells # 0.0 Sodium Level 141 Potassium Level 3.5 Chloride Level 104 Carbon Dioxide Level 32 H Anion Gap 9 Blood Urea Nitrogen 18 Creatinine 0.53 L Glucose Level 109 Calcium Level 9.2 Phosphorus Level 2.3 L Magnesium Level 2.0 Medications Current Medications Acetaminophen (Tylenol Liquid) 650 mg Q4H PRN GTB TRACH TUBE CHANGE Last administered on 01/30/17 01:39; Admin Dose 650 MG; Start 01/28/17 at 01:00 Acetazolamide (Diamox) 500 mg DAILY GTB ; Start 01/28/17 at 09:00 Digoxin (Digoxin) 0.25 mg DAILY@13 GTB Last administered on 01/29/17 13:41; Admin Dose 0.25 MG; Start 01/28/17 at 13:00 Enoxaparin Sodium (Lovenox) 40 mg Q12 SC ; Start 01/28/17 at 09:00 Finasteride (Proscar) 5 mg DAILY GTB ; Start 01/28/17 at 09:00 Levetiracetam (Keppra Liquid) 500 mg Q12 GTB Last administered on 01/29/17 20: 37; Admin Dose 500 MG; Start 01/28/17 at 09:00 Loratadine (Claritin) 10 mg DAILY GTB ; Start 01/28/17 at 09:00 Propranolol HCl (Inderal) 20 mg Q8H GTB Last administered on 01/30/17 01:39; Admin Dose 20 MG; Start 01/28/17 at 01:00 Tramadol HCl (Ultram) 50 mg BID PRN GTB PAIN Last administered on 01/28/17 20: 50; Admin Dose 50 MG; Start 01/28/17 at 01:00 Chlorhexidine Gluconate (Peridex) 15 ml Q12 MT Last administered on 01/29/17 20:38; Admin Dose 15 ML; Start 01/28/17 at 09:00 Lactobacillus Acidophilus (Florajen3 Capsule) 1 each BID NGT Last administered on 01/29/17 20:38; Admin Dose 1 EACH; Start 01/28/17 at 09:00 Lansoprazole (Prevacid) 30 mg DAILY@06 GTB Last administered on 12/8/17at 06:00 ; Admin Dose 30 MG; Start 01/28/17 at 06:00 Miscellaneous Information (Pending Santyl Order For Wound Care) This patient briggs... PRN PRN XX WOUND CARE; Start 01/28/17 at 01:00 Assessment/Plan Chief Complaint/Hosp Course 1. Sinus tachycardia: multifactorial. Improving now 2. hypoxemic resp failure: s/p trach vent dep 3. hx endocarditis 4. hx mitral valve prolapse/ disease. 5. anemia. 6. hx DVT S/P IVC filter in place. Recommendations: Antibiotic management as per internal medicine. Echocardiogram was very suboptimal due to patient's poor cooperation but appears to have normal EF Respiratory care and vent support will be continued. I will continue with the telemetry monitoring closely. Electrolytes to be corrected as needed. DVT prophylaxis to be continued. Thank you for his referral will continue to follow along with you. TAYLOR WATKINS MD [facility] Problems: TAYLOR WATKINS MD Jan 30, 2017 08:45
[2017-01-30] MEDS: ENOXAPARIN 40 MG/0.4 ML SYG SC SCH (09:00)
[2017-01-30] MEDS: ACETAZOLAMIDE 250 MG TAB GTB SCH (09:32)
[2017-01-30] MEDS: LEVETIRACETAM (100 MG/ML) 5ML CUP GTB SCH ×2 (09:32→21:07)
[2017-01-30] MEDS: LORATADINE 10 MG TAB GTB SCH (09:32)
[2017-01-30] MEDS: FINASTERIDE 5 MG TAB GTB SCH (09:32)
[2017-01-30] MEDS: traMADol 50 MG TAB GTB PRN ×2 (09:33→21:07)
[2017-01-30] MEDS: L ACIDOPHIL/B LACTIS/B LONGUM CAPSULE NGT SCH ×2 (09:33→21:07)
[2017-01-30] MEDS: CHLORHEXIDINE GLUCONATE 15 ML UD CUP MT SCH ×2 (09:36→21:07)
[2017-01-30] MEDS ORDERED: NEUTRA-PHOS 250 MG PACKET PO ONE (10:00)
--- NOTE | 2017-01-30 12:02 | PN ---
DATE: 01/30/2017 SUBJECTIVE: The patient is stable. No events overnight. No fevers, chills, nausea, vomiting. OBJECTIVE: VITAL SIGNS: Blood pressure is 112/67, respiration 12, pulse 93, temperature 98.5. HEENT: Head is normocephalic. NECK: Supple. HEART: Regular rate. LUNGS: Show diminished breath sounds at base. ABDOMEN: Soft, nontender to palpation. No rebound or guarding. EXTREMITIES: Negative for clubbing, cyanosis, no edema. DERMATOLOGIC: No rashes. MUSCULOSKELETAL: No joint effusions. NEUROLOGIC: No change in exam. MEDICATIONS: The patient's medications have been reviewed. LABORATORY DATA: Showed sodium 141, potassium 3.5, phosphorus 2.3. White count 10.7, hemoglobin 10 .8, platelet count is 227. ASSESSMENT AND PLAN: 1. Tachyarrhythmia improved. The patient is currently in sinus rhythm. 2. Contractures of bilateral hands. The patient was seen by Dr. Puente, who recommended possible surgical correction in outpatient setting. We will continue to monitor. 3. Coronary artery disease, currently stable. Continue medical management. 4. Ventilator dependent respiratory failure. Vent settings and ABG is reviewed. Continue to monit or. 5. History post percutaneous endoscopic gastrostomy. Continue tube feeds. 6. Anemia. Monitor hemoglobin and hematocrit levels. 7. Seizure disorder. Continue Keppra. 8. Hypertension. Continue current blood pressure regimen. 9. History of cerebrovascular accident. 10. Decubitus wound. Continue wound care. 11. History of congestive heart failure. The patient is currently euvolemic. Continue medical man agement. 12. History of urinary retention. 13. Gastrointestinal and deep venous thrombosis prophylaxis. DISPOSITION: The patient is pending possible transfer back to [facility] or [place]. Awaiting for patient' s caregiver to return my call. If the patient's caregiver agrees we will transfer the patient to [facility] [place]. Dictated By: DOLLY OROSCO/JAYNA Conf#: [id number] DID#: [id number]
--- NOTE | 2017-01-30 13:52 | CONS ---
Date/Time of Note Date/Time of Note DATE: 01/30/17 TIME: 13:52 Assessment/Plan Assessment/Plan Chief Complaint/Hosp Course SUBJECTIVE: No acute changes. The patient is awake, looks comfortable, no fevers overnight. MICROBIOLOGY: Blood and urine cultures negative. INDWELLINGS: Trach, PEG, May. DIAGNOSTICS: Chest x-ray on admission revealed no evidence of acute cardiopulmonary disease. PHYSICAL EXAMINATION: GENERAL: This is a chronically ill-appearing, debilitated, elderly man who is in no distress. HEENT: Head atraumatic, normocephalic. Sclerae anicteric. Buccal mucosa dry. NECK: Supple. CHEST: Rise symmetrical. Breath sounds diminished to bases. HEART: S1, S2. ABDOMEN: Soft, bowel tones present. EXTREMITIES: Contractures. ASSESSMENT: 1. Tachyarrhythmia. 2. Chronic respiratory failure. 3. Dysphagia. 4. History of deep venous thrombosis, status post inferior vena cava filter placement. 5. History of cerebrovascular accident. PLAN: Remains stable off antibiotics. Continue present care. Problems: Consultation Date/Type/Reason Admit Date/Time Jan 28, 2017 at 16:16 Initial Consult Date 01/28/17 Type of Consultation: id Referring Provider: DOLLY DONIS DO Exam/Review of Systems Vital Signs Vitals Vital Signs Date Time Temp Pulse Resp B/P Pulse Ox O2 Delivery O2 Flow Rate FiO2 01/30/17 13:23 88 01/30/17 13:05 31 98 40 01/30/17 11:45 98.0 129/86 01/27/17 21:30 Mechanical Ventilator Intake and Output 01/29/17 01/29/17 01/30/17 14:59 22:59 06:59 Intake Total 1100 ml 800 ml Output Total 1300 ml 500 ml Balance -200 ml 300 ml Results Result Diagram: 01/30/1731 01/30/1731 Results 24 hrs Laboratory Tests Test 01/30/17 06:31 White Blood Count 10.7 # Red Blood Count 4.30 L Hemoglobin 12.8 L Hematocrit 39.3 L Mean Corpuscular Volume 91.4 Mean Corpuscular Hemoglobin 29.8 Mean Corpuscular Hemoglobin Concent 32.6 Red Cell Distribution Width 14.7 H Platelet Count 227 Mean Platelet Volume 9.9 Neutrophils % 78.7 H Lymphocytes % 10.0 L Monocytes % 8.1 Eosinophils % 2.3 Basophils % 0.2 Nucleated Red Blood Cells % 0.0 Neutrophils # 8.4 H Lymphocytes # 1.1 Monocytes # 0.9 Eosinophils # 0.3 Basophils # 0.0 Nucleated Red Blood Cells # 0.0 Sodium Level 141 Potassium Level 3.5 Chloride Level 104 Carbon Dioxide Level 32 H Anion Gap 9 Blood Urea Nitrogen 18 Creatinine 0.53 L Glucose Level 109 Calcium Level 9.2 Phosphorus Level 2.3 L Magnesium Level 2.0 Medications Medications Current Medications Acetaminophen (Tylenol Liquid) 650 mg Q4H PRN GTB TRACH TUBE CHANGE Last administered on 01/30/17 01:39; Admin Dose 650 MG; Start 01/28/17 at 01:00 Acetazolamide (Diamox) 500 mg DAILY GTB Last administered on 01/30/17 09:32; Admin Dose 500 MG; Start 01/28/17 at 09:00 Digoxin (Digoxin) 0.25 mg DAILY@13 GTB Last administered on 01/29/17 13:41; Admin Dose 0.25 MG; Start 01/28/17 at 13:00 Finasteride (Proscar) 5 mg DAILY GTB Last administered on 01/30/17 09:32; Admin Dose 5 MG; Start 01/28/17 at 09:00 Levetiracetam (Keppra Liquid) 500 mg Q12 GTB Last administered on 01/30/17 09: 32; Admin Dose 500 MG; Start 01/28/17 at 09:00 Loratadine (Claritin) 10 mg DAILY GTB Last administered on 01/30/17 09:32; Admin Dose 10 MG; Start 01/28/17 at 09:00 Propranolol HCl (Inderal) 20 mg Q8H GTB Last administered on 01/30/17 09:34; Admin Dose 20 MG; Start 01/28/17 at 01:00 Tramadol HCl (Ultram) 50 mg BID PRN GTB PAIN Last administered on 01/30/17 09: 33; Admin Dose 50 MG; Start 01/28/17 at 01:00 Chlorhexidine Gluconate (Peridex) 15 ml Q12 MT Last administered on 01/30/17 09:36; Admin Dose 15 ML; Start 01/28/17 at 09:00 Lactobacillus Acidophilus (Florajen3 Capsule) 1 each BID NGT Last administered on 01/30/17 09:33; Admin Dose 1 EACH; Start 01/28/17 at 09:00 Lansoprazole (Prevacid) 30 mg DAILY@06 GTB Last administered on 01/30/17 06:00 ; Admin Dose 30 MG; Start 01/28/17 at 06:00 Miscellaneous Information (Pending Santyl Order For Wound Care) This patient briggs... PRN PRN XX WOUND CARE; Start 01/28/17 at 01:00 Enoxaparin Sodium (Lovenox) 40 mg DAILY SC ; Start 01/30/17 at 09:00 ANNA SMITH NP Jan 30, 2017 13:52
[2017-01-30] MEDS: DIGOXIN 0.25 MG TAB GTB SCH (18:47)
[2017-01-31] VITALS (22 sets, daily range): BP systolic 101–143; BP diastolic 62–74; PULSE 93–137; RESP 12–28
[2017-01-31] MEDS: PROPRANOLOL 20 MG TAB GTB SCH ×3 (01:00→17:17)
[2017-01-31] MEDS: LANSOPRAZOLE 30 MG CAP GTB SCH (06:41)
[2017-01-31] MEDS: ENOXAPARIN 40 MG/0.4 ML SYG SC SCH ×2 (09:00→09:15)
[2017-01-31] MEDS: L ACIDOPHIL/B LACTIS/B LONGUM CAPSULE NGT SCH (09:16)
[2017-01-31] MEDS: ACETAZOLAMIDE 250 MG TAB GTB SCH (09:16)
[2017-01-31] MEDS: FINASTERIDE 5 MG TAB GTB SCH (09:17)
[2017-01-31] MEDS: LEVETIRACETAM (100 MG/ML) 5ML CUP GTB SCH (09:17)
[2017-01-31] MEDS: CHLORHEXIDINE GLUCONATE 15 ML UD CUP MT SCH (09:17)
[2017-01-31] MEDS: LORATADINE 10 MG TAB GTB SCH (09:18)
--- NOTE | 2017-01-31 09:39 | CONS ---
Date/Time of Note Date/Time of Note DATE: 01/31/17 TIME: 09:37 Consult Date/Type/Reason Admit Date/Time Jan 28, 2017 at 16:16 Initial Consult Date 01/28/17 Type of Consultation: nephro Ordering Provider: DOLLY DONIS DO Subjective pt. seen and examined good uop pe: HEENT: Head is normocephalic. NECK: Supple. HEART: Regular rate. LUNGS: Show diminished breath sounds at base. ABDOMEN: Soft, nontender to palpation. No rebound or guarding. EXTREMITIES: Negative for clubbing, cyanosis, no edema. DERMATOLOGIC: No rashes. MUSCULOSKELETAL: No joint effusions. NEUROLOGIC: No change in exam. Objective Vital Signs Date Time Temp Pulse Resp B/P Pulse Ox O2 Delivery O2 Flow Rate FiO2 01/31/17 08:40 137 01/31/17 07:51 98.2 16 143/74 93 01/31/17 05:37 40 01/27/17 21:30 Mechanical Ventilator Intake and Output 01/30/17 01/30/17 01/31/17 15:00 23:00 07:00 Intake Total 1050 ml 900 ml Output Total 700 ml 700 ml Balance 350 ml 200 ml Results/Medications Result Diagram: 01/30/17 0631 01/30/17 0631 Medications Current Medications Acetaminophen (Tylenol Liquid) 650 mg Q4H PRN GTB TRACH TUBE CHANGE Last administered on 01/30/17 01:39; Admin Dose 650 MG; Start 01/28/17 at 01:00 Acetazolamide (Diamox) 500 mg DAILY GTB Last administered on 01/31/17 09:16; Admin Dose 500 MG; Start 01/28/17 at 09:00 Digoxin (Digoxin) 0.25 mg DAILY@13 GTB Last administered on 01/30/17 18:47; Admin Dose 0.25 MG; Start 01/28/17 at 13:00 Finasteride (Proscar) 5 mg DAILY GTB Last administered on 01/31/17 09:17; Admin Dose 5 MG; Start 01/28/17 at 09:00 Levetiracetam (Keppra Liquid) 500 mg Q12 GTB Last administered on 01/31/17 09: 17; Admin Dose 500 MG; Start 01/28/17 at 09:00 Loratadine (Claritin) 10 mg DAILY GTB Last administered on 01/31/17 09:18; Admin Dose 10 MG; Start 01/28/17 at 09:00 Propranolol HCl (Inderal) 20 mg Q8H GTB Last administered on 01/31/17 09:18; Admin Dose 20 MG; Start 01/28/17 at 01:00 Tramadol HCl (Ultram) 50 mg BID PRN GTB PAIN Last administered on 01/30/17 21: 07; Admin Dose 50 MG; Start 01/28/17 at 01:00 Chlorhexidine Gluconate (Peridex) 15 ml Q12 MT Last administered on 01/31/17 09:17; Admin Dose 15 ML; Start 01/28/17 at 09:00 Lactobacillus Acidophilus (Florajen3 Capsule) 1 each BID NGT Last administered on 01/31/17 09:16; Admin Dose 1 EACH; Start 01/28/17 at 09:00 Lansoprazole (Prevacid) 30 mg DAILY@06 GTB Last administered on 01/31/17 06:41 ; Admin Dose 30 MG; Start 01/28/17 at 06:00 [facility] This patient briggs... PRN PRN XX WOUND CARE; Start 01/28/17 at 01:00 Enoxaparin Sodium (Lovenox) 40 mg DAILY SC ; Start 01/30/17 at 09:00 Assessment/Plan Chief Complaint/Hosp Course 1. Tachyarrhythmia improved. The patient is currently in sinus rhythm. 2. Contractures of bilateral hands. The patient was seen by Dr. Puente, who recommended possible surgical correction in outpatient setting. We will continue to monitor. 3. Coronary artery disease, currently stable. Continue medical management. 4. Ventilator dependent respiratory failure. Vent settings and ABG is reviewed. Continue to monitor. 5. History post percutaneous endoscopic gastrostomy. Continue tube feeds. 6. Anemia. Monitor hemoglobin and hematocrit levels. 7. Seizure disorder. Continue Keppra. 8. Hypertension. Continue current blood pressure regimen. 9. History of cerebrovascular accident. 10. Decubitus wound. Continue wound care. 11. History of congestive heart failure. The patient is currently euvolemic. Continue medical management. 12. History of urinary retention. 13. Gastrointestinal and deep venous thrombosis prophylaxis. Problems: SHANNON KNAPP MD Jan 31, 2017 09:38
[2017-01-31] MEDS: DIGOXIN 0.25 MG TAB GTB SCH (13:36)
--- NOTE | 2017-01-31 18:30 | CONS ---
Date/Time of Note Date/Time of Note DATE: 01/31/17 TIME: 18:30 Assessment/Plan Assessment/Plan Chief Complaint/Hosp Course ID PROGRESS NOTE TOTAL ABX DAY CURRENT ABX=>OFF ABX 24H INTERVAL SUMMARY * Encephalopathic, non-verbal, trached -> no fevers, looks comfortable, WBC normal * All micro negative EXAM GENERAL: VSS, NAD HEENT: Encephalopathic NECK: TRACHED CHEST: Rise symmetrical, without dyspnea on observation ABDOMEN: Soft, peg EXTREMITIES: Warm, SKIN: No diaphoresis, no rash ID ASSESSMENT: 66 yo M admit w/PMHx CVA, hydrocephalus, Trach/Peg, admit with: 1. Tachyarrhythmia. 2. Chronic respiratory failure. 3. Dysphagia. 4. History of deep venous thrombosis, status post inferior vena cava filter placement. INVASIVES: PIV, TRACH, PEG ABX ALLERGY: KNDA CURRENT ABX=>NONE ID PLAN 1. NO evidence of current SIRS, no sepsis, all micro negative 2. Observe off ABX w/PRN cultures per clinical indication such as fevers > 101.5 . . Problems: Consultation Date/Type/Reason Admit Date/Time Jan 28, 2017 at 16:16 Initial Consult Date 01/28/17 Type of Consultation: ID Referring Provider: DOLLY DONIS DO Exam/Review of Systems Vital Signs Vitals Vital Signs Date Time Temp Pulse Resp B/P Pulse Ox O2 Delivery O2 Flow Rate FiO2 01/31/17 17:42 104 16 97 40 01/31/17 15:20 99.4 113/65 01/27/17 21:30 Mechanical Ventilator Intake and Output 01/30/17 01/30/17 01/31/17 14:59 22:59 06:59 Intake Total 1050 ml 900 ml Output Total 700 ml 700 ml Balance 350 ml 200 ml Results Result Diagram: 01/30/1731 01/30/17630 Medications Medications Current Medications Acetaminophen (Tylenol Liquid) 650 mg Q4H PRN GTB TRACH TUBE CHANGE Last administered on 01/30/17 01:39; Admin Dose 650 MG; Start 01/28/17 at 01:00 Acetazolamide (Diamox) 500 mg DAILY GTB Last administered on 01/31/17 09:16; Admin Dose 500 MG; Start 01/28/17 at 09:00 Digoxin (Digoxin) 0.25 mg DAILY@13 GTB Last administered on 01/31/17 13:36; Admin Dose 0.25 MG; Start 01/28/17 at 13:00 Finasteride (Proscar) 5 mg DAILY GTB Last administered on 01/31/17 09:17; Admin Dose 5 MG; Start 01/28/17 at 09:00 Levetiracetam (Keppra Liquid) 500 mg Q12 GTB Last administered on 01/31/17 09: 17; Admin Dose 500 MG; Start 01/28/17 at 09:00 Loratadine (Claritin) 10 mg DAILY GTB Last administered on 01/31/17 09:18; Admin Dose 10 MG; Start 01/28/17 at 09:00 Propranolol HCl (Inderal) 20 mg Q8H GTB Last administered on 01/31/17 17:17; Admin Dose 20 MG; Start 01/28/17 at 01:00 Tramadol HCl (Ultram) 50 mg BID PRN GTB PAIN Last administered on 01/30/17 21: 07; Admin Dose 50 MG; Start 01/28/17 at 01:00 Chlorhexidine Gluconate (Peridex) 15 ml Q12 MT Last administered on 01/31/17 09:17; Admin Dose 15 ML; Start 01/28/17 at 09:00 Lactobacillus Acidophilus (Florajen3 Capsule) 1 each BID NGT Last administered on 01/31/17 09:16; Admin Dose 1 EACH; Start 01/28/17 at 09:00 Lansoprazole (Prevacid) 30 mg DAILY@06 GTB Last administered on 01/31/17 06:41 ; Admin Dose 30 MG; Start 01/28/17 at 06:00 Miscellaneous Information (Pending Santyl Order For Wound Care) This patient briggs... PRN PRN XX WOUND CARE; Start 01/28/17 at 01:00 Enoxaparin Sodium (Lovenox) 40 mg DAILY SC ; Start 01/30/17 at 09:00 ZHANE MOYA NP Jan 31, 2017 18:30
== END 2017-01-31 20:30 | DRG 308 ==
LOC: E/R 16:56 → TEL 17:17 → INTOOBSV 17:17 → OBSVTOIN 01-28 16:16
PROVIDERS: ADMIT Internal Medicine; ATTEND Internal Medicine
PROC: 5A1955Z Respiratory Ventilation, Greater than 96 Consecutive Hours (ICD-10-PCS; principal; 2017-01-27)
DX: R00.0 Tachycardia, unspecified (principal); G92 Toxic encephalopathy; Z99.11 Dependence on respirator [ventilator] status; L89.100 Pressure ulcer of unspecified part of back, unstageable; J96.10 Chronic respiratory failure, unspecified whether with hypoxia or hypercapnia; Z93.0 Tracheostomy status; L89.151 Pressure ulcer of sacral region, stage 1; D63.8 Anemia in other chronic diseases classified elsewhere; Z86.73 Personal history of transient ischemic attack (TIA), and cerebral infarction without residual deficits; E86.0 Dehydration; Z93.1 Gastrostomy status; G40.909 Epilepsy, unspecified, not intractable, without status epilepticus; Z86.718 Personal history of other venous thrombosis and embolism; M24.541 Contracture, right hand; R13.10 Dysphagia, unspecified; I45.10 Unspecified right bundle-branch block; M24.542 Contracture, left hand
CPT/HCPCS: 36415; 71010; 80048; 80053; 81003; 83605; 83735; 84100; 84484; 85025; 85610; 85730; 87040; 87081; 87086; 93005; 93308; 94002; 94003; G0378; J1650; J7030

== ENCOUNTER 2017-03-20 12:26 | Inpatient (IN) | END 2017-03-23 18:50 | DRG 562 ==

== ENCOUNTER 2017-05-14 07:14 | Inpatient (IN) | END 2017-05-15 00:59 | disposition EXP | DRG 871 ==